=== PATIENT | female | born 2000 | race Caucasian/White ===

== ENCOUNTER 2018-08-29 13:47 | Inpatient (IN) | payer OTHER ==
[2018-08-29] MEDS ORDERED: Ondansetron 4 MG Tab.DIS PO ONE (14:03)
[2018-08-29] MEDS ORDERED: Ondansetron 4 MG/2 ML SDV IVPUSH ONE (14:09)
[2018-08-29] MEDS ORDERED: Sodium Chloride 0.9% 1,000 ML IV ONE ×2 (14:09→22:18)
--- NOTE | 2018-08-29 14:29 | EDM.PDOC ---
ED HPI GENERAL MEDICAL PROBLEM - General Chief Complaint: Headache Stated Complaint: VOMITIN/LEFT ABDOMIN PAIN/HEADACHE Time Seen by Provider: 08/29/18 13:57 Source of Information: Reports: Patient History Limitations: Reports: No Limitations - History of Present Illness INITIAL COMMENTS - FREE TEXT/NARRATIVE: 18 yo F comes in today for headache, LUQ pain, nausea and vomiting x 4 days (2 episodes last night and 2 this morning). She states it was a random onset of symptoms, denies any recent sick contacts, changes in eating habits, or recent travel. She has had similar symptoms in the past, when she had salmonella 2 years ago. She is unable to keep any food or fluids down for about 3 days. She c /o NO 4/10 currently, dizziness/weakness especially with standing, F/C, SOB, Nausea, Vomiting x4 since yesterday, abdominal pain 7/10 with movement. She denies runny nose, sneezing, congestion, sore throat, cough, diarrhea, bloody stool or urine, constipation or any GI/ symptoms. She tried Tylenol at home for her headache with some relief. No h/o migraines. LNMP was 4 days ago. She is sexually active, does not urinate after intercourse. She drinks socially, about 1-2 glasses of wine and "a couple shots" about "every few months". Denies any illicit drug use. She "occasionally vapes" tobacco every few days. She currently does not have a PCP; originally from [place] and has been here 1 year. Treatments CONTRACTING ENGINEER: Reports: Other (see below) Other Treatments CONTRACTING ENGINEER: tylenol q 6hr; 2 tabs Headache Pain Score (Numeric/FACES): 6 Left Upper Abdomen Pain Score (Numeric/FACES): 7 - Related Data Allergies Allergy/AdvReac Type Severity Reaction Status Date / Time No Known Allergies Allergy Verified 08/29/18 14:00 Home Meds: Home Meds ALPRAZolam [Xanax] 0.5 mg PO ASDIRECTED 08/29/18 [History] Sertraline [Zoloft] 150 mg PO DAILY 08/29/18 [History] Past Medical History Psychiatric History: Reports: ADHD, Depression - Infectious Disease History Infectious Disease History: Reports: Other (See Below) Other Infectious Disease History: salamela about 3 yrs ago Social & Family History - Tobacco Use Smoking Status *Q: Never Smoker - Caffeine Use Caffeine Use: Reports: Coffee - Recreational Drug Use Recreational Drug Use: No ED ROS GENERAL - Review of Systems Review Of Systems: See Below Constitutional: Reports: Fever, Chills, Weakness HEENT: Reports: No Symptoms. Denies: Rhinitis, Throat Pain Respiratory: Reports: Shortness of Breath. Denies: Wheezing, Cough Cardiovascular: Reports: No Symptoms. Denies: Chest Pain Endocrine: Reports: Fatigue GI/Abdominal: Reports: Abdominal Pain (LUQ), Nausea, Vomiting (twice last night and twice today). Denies: Bloody Stool, Constipation, Diarrhea, Hematemesis : Reports: No Symptoms. Denies: Dysuria, Hematuria Musculoskeletal: Reports: No Symptoms Skin: Reports: Pallor, Diaphoresis Neurological: Reports: Dizziness (with standing), Headache (/10 currently), Weakness Psychiatric: Reports: No Symptoms Hematologic/Lymphatic: Reports: No Symptoms Immunologic: Reports: No Symptoms ED EXAM, GI/ABD - Physical Exam Exam: See Below Exam Limited By: No Limitations General Appearance: Alert, WD/WN, Mild Distress Eyes: Bilateral: Normal Appearance, EOMI Ears: Normal External Exam, Hearing Grossly Normal Nose: Normal Inspection, Normal Mucosa, No Blood Throat/Mouth: Normal Inspection, Normal Teeth, Normal Gums, Normal Oropharynx, Normal Voice, No Airway Compromise. No: Normal Lips (dry) Neck: Normal Inspection, Supple, Non-Tender, Full Range of Motion Respiratory/Chest: No Respiratory Distress, Lungs Clear, Normal Breath Sounds, No Accessory Muscle Use, Chest Non-Tender Cardiovascular: Normal Peripheral Pulses, No Edema, No Gallop, No JVD, No Murmur , No Rub, Tachycardia GI/Abdominal Exam: Soft, Non-Tender, No Organomegaly, No Distention, No Abnormal Bruit, No Mass, Pelvis Stable, Abnormal Bowel Sounds (hyperactive). No : Guarding, Rigid, Rebound (Female) Exam: Deferred Back Exam: Normal Inspection, Full Range of Motion, NT Neurological: Alert, Oriented, CN II-XII Intact, Normal Cognition, Normal Gait, Normal Reflexes, No Motor/Sensory Deficits Psychiatric: Normal Affect, Normal Mood Skin Exam: Warm, Intact, Diaphoretic, Increased Warmth, Pallor Course - Vital Signs Last Recorded V/S: Last Vital Signs Temp 97.7 F 08/29/18 15:35 Pulse 92 08/29/18 15:35 Resp 22 H 08/29/18 15:35 BP 91/61 08/29/18 15:35 Pulse Ox 99 08/29/18 15:35 Orthostatic Blood Pressure [ 90/56 Standing] Orthostatic Blood Pressure [ 111/73 Sitting] Orthostatic Blood Pressure [ 95/66 Supine] - Orders/Labs/Meds Orders: Active Orders 24 hr Category Date Time Status Admission Status [Patient Status] [ADT] Routine ADT 08/29/18 18:28 Ordered Chest 2V [CR] Stat Exams 08/29/18 15:24 Taken KUB [Abdomen 1V Flat] [CR] Stat Exams 08/29/18 14:23 Taken CULTURE BLOOD [BC] Stat Lab 08/29/18 15:38 Received CULTURE BLOOD [BC] Stat Lab 08/29/18 15:48 Received CULTURE URINE [RM] Stat Lab 08/29/18 16:35 Received Dextrose 5%-Normal Saline @ 100 MLS/HR(1000ml) Med 08/29/18 18:45 Ordered Dextrose 5%-0.9% NaCl [Dextrose 5%-Normal Saline] 1,000 ml IV ASDIRECTED Levofloxacin/Dextrose 5%-Water [Levaquin in D5W 750 MG/ Med 08/30/18 16:00 Ordered 150 ML] 750 mg Premix Bag 1 bag IV Q24H Blood Culture x2 Reflex Set [OM.PC] Stat Oth 08/29/18 15:26 Ordered Resuscitation Status Stat Resus Stat 08/29/18 18:28 Ordered Medication Orders Dextrose/Sodium Chloride (Dextrose 5%-Normal Saline) 1,000 mls @ 100 mls/hr IV ASDIRECTED GIOVANY Levofloxacin/Dextrose 750 mg/ (Premix) 150 mls @ 100 mls/hr IV Q24H [facility] Labs: Laboratory Tests 08/29/18 08/29/18 08/29/18 Range/Units 14:15 14:15 14:15 WBC 30.35 H (3.98-10.04) K/mm3 RBC 4.97 (3.98-5.22) M/mm3 Hgb 13.8 (11.2-15.7) gm/L Hct 40.1 (34.1-44.9) % MCV 80.7 (79.4-94.8) fl MCH 27.8 (25.6-32.2) pg MCHC 34.4 (32.2-35.5) g/dl RDW Std Deviation 36.6 (36.4-46.3) fL Plt Count 241 (182-369) K/mm3 MPV 9.4 (9.4-12.3) fl Neut % (Auto) Cancelled Lymph % (Auto) Cancelled [place] % (Auto) Cancelled Eos % (Auto) Cancelled Baso % (Auto) Cancelled Neut # (Auto) Cancelled Lymph # (Auto) Cancelled [place] # (Auto) Cancelled Eos # (Auto) Cancelled Baso # (Auto) Cancelled Neutrophils % (Manual) 83 H (40-60) % Band Neutrophils % 5 (0-10) % Lymphocytes % (Manual) 5 L (20-40) % Atypical Lymphs % 0 % Monocytes % (Manual) 7 (2-10) % Eosinophils % (Manual) 0 L (0.7-5.8) % Basophils % (Manual) 0 L (0.1-1.2) Manual Slide Review Cancelled Toxic Granulation Few Platelet Estimate Adequate RBC Morph Comment Not Reportable Sodium 134 L (136-145) mEq/L Potassium 3.1 L (3.5-5.1) mEq/L Chloride 97 L (98-107) mEq/L Carbon Dioxide 22 (21-32) mEq/L Anion Gap 18.1 H (5-15) BUN 14 (7-18) mg/dL Creatinine 1.1 H (0.55-1.02) mg/dL Est Cr Clr Drug Dosing 85.26 mL/min Estimated GFR (MDRD) > 60 (>60) mL/min BUN/Creatinine Ratio 12.7 L (14-18) Glucose 136 H (74-106) mg/dL Lactic Acid (0.4-2.0) mmol/L Calcium 9.1 (8.5-10.1) mg/dL Total Bilirubin 1.2 H (0.2-1.0) mg/dL AST 64 H (15-37) U/L ALT 71 H (14-59) U/L Alkaline Phosphatase 58 (46-116) U/L C-Reactive Protein 11.3 H* (<1.0) mg/dL Total Protein 7.8 (6.4-8.2) g/dl Albumin 3.5 (3.4-5.0) g/dl Globulin 4.3 gm/dL Albumin/Globulin Ratio 0.8 L (1-2) Amylase 30 (25-115) U/L Lipase 78 (73-393) U/L HCG, Quant 1.0 mIU/mL Urine Color (Yellow) Urine Appearance (Clear) Urine pH (5.0-8.0) Ur Specific [place] (1.005-1.030) Urine Protein (Negative) Urine Glucose (UA) (Negative) Urine Ketones (Negative) Urine Occult Blood (Negative) Urine Nitrite (Negative) Urine Bilirubin (Negative) Urine Urobilinogen (0.2-1.0) Ur Leukocyte Esterase (Negative) Urine RBC (0-5) /hpf Urine WBC (0-5) /hpf Ur Epithelial Cells Ur Squamous Epith Cells (0-5) /hpf Urine Bacteria (FEW) /hpf Urine Mucus (FEW) /hpf 08/29/18 08/29/18 Range/Units 15:48 16:35 WBC (3.98-10.04) K/mm3 RBC (3.98-5.22) M/mm3 Hgb (11.2-15.7) gm/L Hct (34.1-44.9) % MCV (79.4-94.8) fl MCH (25.6-32.2) pg MCHC (32.2-35.5) g/dl RDW Std Deviation (36.4-46.3) fL Plt Count (182-369) K/mm3 MPV (9.4-12.3) fl Neut % (Auto) Lymph % (Auto) [place] % (Auto) Eos % (Auto) Baso % (Auto) Neut # (Auto) Lymph # (Auto) [place] # (Auto) Eos # (Auto) Baso # (Auto) Neutrophils % (Manual) (40-60) % Band Neutrophils % (0-10) % Lymphocytes % (Manual) (20-40) % Atypical Lymphs % % Monocytes % (Manual) (2-10) % Eosinophils % (Manual) (0.7-5.8) % Basophils % (Manual) (0.1-1.2) Manual Slide Review Toxic Granulation Platelet Estimate RBC Morph Comment Sodium (136-145) mEq/L Potassium (3.5-5.1) mEq/L Chloride (98-107) mEq/L Carbon Dioxide (21-32) mEq/L Anion Gap (5-15) BUN (7-18) mg/dL Creatinine (0.55-1.02) mg/dL Est Cr Clr Drug Dosing mL/min Estimated GFR (MDRD) (>60) mL/min BUN/Creatinine Ratio (14-18) Glucose (74-106) mg/dL Lactic Acid 1.3 (0.4-2.0) mmol/L Calcium (8.5-10.1) mg/dL Total Bilirubin (0.2-1.0) mg/dL AST (15-37) U/L ALT (14-59) U/L Alkaline Phosphatase (46-116) U/L C-Reactive Protein (<1.0) mg/dL Total Protein (6.4-8.2) g/dl Albumin (3.4-5.0) g/dl Globulin gm/dL Albumin/Globulin Ratio (1-2) Amylase (25-115) U/L Lipase (73-393) U/L HCG, Quant mIU/mL Urine Color Yellow (Yellow) Urine Appearance Cloudy H (Clear) Urine pH 6.0 (5.0-8.0) Ur Specific [place] 1.020 (1.005-1.030) Urine Protein 3+ H (Negative) Urine Glucose (UA) Negative (Negative) Urine Ketones 2+ H (Negative) Urine Occult Blood 3+ H (Negative) Urine Nitrite Negative (Negative) Urine Bilirubin Negative (Negative) Urine Urobilinogen 1.0 (0.2-1.0) Ur Leukocyte Esterase 2+ H (Negative) Urine RBC 5-10 H (0-5) /hpf Urine WBC 10-20 H (0-5) /hpf Ur Epithelial Cells Not Reportable Ur Squamous Epith Cells 5-10 H (0-5) /hpf Urine Bacteria Many H (FEW) /hpf Urine Mucus Not seen (FEW) /hpf Meds: Medications Generic Name Dose Route Start Last Admin Trade Name Freq PRN Reason Stop Dose Admin Dextrose/Sodium Chloride 1,000 mls @ 100 mls/hr 08/29/18 18:45 Dextrose 5%-Normal Saline IV ASDIRECTED GIOVANY Levofloxacin/Dextrose 750 mg/ 150 mls @ 100 mls/hr 08/30/18 16:00 Premix IV Q24H GIOVANY Discontinued Medications Generic Name Dose Route Start Last Admin Trade Name Sandhya PRN Reason Stop Dose Admin Ceftriaxone Sodium 2 gm 08/29/18 16:45 08/29/18 18:03 Rocephin IVPUSH Not Given Q24H GIOVANY Sodium Chloride 1,000 mls @ 999 mls/hr 08/29/18 14:09 08/29/18 14:25 Normal Saline IV 08/29/18 15:09 999 mls/hr ONETIME ONE Administration Lactated Ringer's 1,000 mls @ 999 mls/hr 08/29/18 15:17 08/29/18 15:25 Ringers, Lactated IV 08/29/18 16:17 999 mls/hr .BOLUS ONE Administration Potassium Chloride 10 meq/ 100 mls @ 100 mls/hr 08/29/18 15:23 08/29/18 15:35 Premix IV 08/29/18 16:22 100 mls/hr ONETIME ONE Administration Lactated Ringer's 1,000 mls @ 999 mls/hr 08/29/18 16:38 08/29/18 16:55 Ringers, Lactated IV 08/29/18 17:38 999 mls/hr .BOLUS ONE Administration Potassium Chloride 10 meq/ 100 mls @ 100 mls/hr 08/29/18 16:39 08/29/18 16:55 Premix IV 08/29/18 17:38 100 mls/hr ONETIME ONE Administration Levofloxacin/Dextrose 750 mg/ 150 mls @ 100 mls/hr 08/29/18 16:43 08/29/18 17 :24 Premix IV 08/29/18 18:12 100 mls/hr ONETIME ONE Administration Dextrose/Sodium Chloride 1,000 mls @ 999 mls/hr 08/29/18 16:45 08/29/18 17:20 Dextrose 5%-Normal Saline IV 999 mls/hr ASDIRECTED GIOVANY Administration Ketorolac Tromethamine 15 mg 08/29/18 14:34 08/29/18 14:54 Toradol IVPUSH 08/29/18 14:35 15 mg ONETIME ONE Administration Ondansetron HCl 4 mg 08/29/18 14:03 08/29/18 14:35 Zofran Odt PO 08/29/18 14:04 Not Given ONETIME ONE Ondansetron HCl 4 mg 08/29/18 14:09 08/29/18 14:20 Zofran IVPUSH 08/29/18 14:10 4 mg ONETIME ONE Administration Potassium Chloride 40 meq 08/29/18 15:17 08/29/18 16:21 Klor-Con M20 PO 08/29/18 15:18 Not Given ONETIME ONE - Re-Assessments/Exams Free Text/Narrative Re-Assessment/Exam: 08/29/18 14:03 Ordered CBC, CMP, CRP, UA, KUB, Influenza 1L Bolus IV NS, Zofran 4mg IV push given, Toradol 15mg IV push for headache Orthostatic VS 08/29/18 14:30 Orthostatic vitals positive; likely dehydrated 08/29/18 15:05 Influenza negative KUB reviewed by Dr. Lujan and myself. Nothing acute seen. 08/29/18 15:15 Checked in with patient and she is feeling much better. Headache is now 2/10. 08/29/18 15:20 CBC is significant for WBC 30.35 CMP significant for Na 134, K 3.1, Cl 97, AGap 18.1, Cr 1.1, Glu 136, Bili 1.2, AST 64, ALT 71, CRP 11.3 08/29/18 15:28 With her tachycardia, WBC 30.35 w/ 5% bandemia, and suspected source of infection, she meets Sepsis Criteria at this time. Will continue IVF and order blood cultures, lactic acid, CXR to r/o infection. Still awaiting urine cultures. 08/29/18 16:06 CXR reviewed by myself and Dr. Lujan, nothing acute seen. 08/29/18 16:33 LA WNL at 1.3 UA collected, awaiting results Levaquin 750mg IV ordered 08/29/18 17:10 Urine culture ordered UA impressive for UTI- Cloudy, 3+ protein, 2+ ketones, 3+ occult blood, 2+ Leuk esterase, 5-10 RBC, 10-20 WBC, Many bacteria 08/29/18 17:30 Case discussed with hospitalist Dr. Silva. She will come see the patient in the ED. 08/29/18 18:00 Pt has been accepted by hospitalist Dr. Silva for observation. She would like an Amylase and Lipase ordered- they are WNL. Departure - Departure Time of Disposition: 18:27 Disposition: Refer to Observation Condition: Fair Clinical Impression: Pyelonephritis - Discharge Information *PRESCRIPTION DRUG MONITORING PROGRAM REVIEWED*: Not Applicable *COPY OF PRESCRIPTION DRUG MONITORING REPORT IN PATIENT ANTONIA: Not Applicable Referrals: PCP,None [Primary Care Provider] - Forms: ED Department Discharge - My Orders Last 24 Hours: My Active Orders 08/29/18 14:23 KUB [Abdomen 1V Flat] [CR] Stat 08/29/18 15:24 Chest 2V [CR] Stat 08/29/18 15:26 Blood Culture x2 Reflex Set [OM.PC] Stat 08/29/18 15:38 CULTURE BLOOD [BC] Stat 08/29/18 15:48 CULTURE BLOOD [BC] Stat 08/29/18 16:35 CULTURE URINE [RM] Stat 08/29/18 18:28 Admission Status [Patient Status] [ADT] Routine Resuscitation Status Stat 08/29/18 18:45 Dextrose 5%-Normal Saline @ 100 MLS/HR(1000ml) Dextrose 5%-0.9% NaCl [Dextrose 5 %-Normal Saline] 1,000 ml IV ASDIRECTED 08/30/18 16:00 Levofloxacin/Dextrose 5%-Water [Levaquin in D5W 750 MG/150 ML] 750 mg Premix Bag 1 bag IV Q24H - Assessment/Plan Last 24 Hours: My Active Orders 08/29/18 14:23 KUB [Abdomen 1V Flat] [CR] Stat 08/29/18 15:24 Chest 2V [CR] Stat 08/29/18 15:26 Blood Culture x2 Reflex Set [OM.PC] Stat 08/29/18 15:38 CULTURE BLOOD [BC] Stat 08/29/18 15:48 CULTURE BLOOD [BC] Stat 08/29/18 16:35 CULTURE URINE [RM] Stat 08/29/18 18:28 Admission Status [Patient Status] [ADT] Routine Resuscitation Status Stat 08/29/18 18:45 Dextrose 5%-Normal Saline @ 100 MLS/HR(1000ml) Dextrose 5%-0.9% NaCl [Dextrose 5 %-Normal Saline] 1,000 ml IV ASDIRECTED 08/30/18 16:00 Levofloxacin/Dextrose 5%-Water [Levaquin in D5W 750 MG/150 ML] 750 mg Premix Bag 1 bag IV Q24H
[2018-08-29] MEDS ORDERED: Ketorolac 15 MG/ML SDV IVPUSH ONE (14:34)
[2018-08-29] MEDS ORDERED: Potassium Chloride 20 MEQ Tab.ER PO ONE (15:17)
[2018-08-29] MEDS ORDERED: Lactated Ringers 1,000 ML IV ONE ×2 (15:17→16:38)
[2018-08-29] MEDS ORDERED: Potassium Chloride 10 MEQ in Premix Bag 1 BAG IV ONE ×2 (15:23→16:39)
[2018-08-29] MEDS ORDERED: Levofloxacin/Dextrose 5%-Water 750 MG in Premix Bag 1 BAG IV ONE (16:43)
[2018-08-29] MEDS ORDERED: Dextrose 5%-0.9% NaCl 1,000 ML IV SCH ×2 (16:45→18:45)
[2018-08-29] MEDS ORDERED: cefTRIAXone 2 GM Vial IVPUSH SCH (16:45)
--- NOTE | 2018-08-29 19:06 | PCM.HP ---
H&P History of Present Illness - General Date of Service: 08/29/18 Admit Problem/Dx: Admission Diagnosis/Problem Admission Diagnosis/Problem Pyelonephritis Source of Information: Patient, Provider History Limitations: Reports: No Limitations - History of Present Illness Initial Comments - Free Text/Narative: 18 year old female with a complaint of nausea with vomiting for 3-4 days. There has not been a specific association with fatty food. Abdominal pain is located in the left upper quadrant. The patient LNMP was 4 days ago; she denies vaginal discharge. The patient will be admitted to observation. Devin is a full code. Symptom Onset Date: 08/25/18 Duration of Symptoms: Reports: Day(s):, Getting Worse Location: Reports: Abdomen, Generalized Severity: Moderate Improves with: Reports: Medication Worsens with: Reports: None Associated Symptoms: Reports: Loss of Appetite, Malaise, Nausea/Vomiting, Weakness Headache Pain Score (Numeric/FACES): 6 Left Upper Abdomen Pain Score (Numeric/FACES): 7 - Related Data Allergies/Adverse Reactions: Allergies Allergy/AdvReac Type Severity Reaction Status Date / Time No Known Allergies Allergy Verified 08/29/18 14:00 Home Medications: Home Meds ALPRAZolam [Xanax] 0.5 mg PO ASDIRECTED 08/29/18 [History] Sertraline [Zoloft] 150 mg PO DAILY 08/29/18 [History] Past Medical History Psychiatric History: Reports: ADHD, Depression - Infectious Disease History Infectious Disease History: Reports: Other (See Below) Other Infectious Disease History: salamela about 3 yrs ago Social & Family History - Tobacco Use Smoking Status *Q: Never Smoker - Caffeine Use Caffeine Use: Reports: Coffee - Recreational Drug Use Recreational Drug Use: No H&P Review of Systems - Review of Systems: Review Of Systems: See Below General: Reports: Malaise, Weakness HEENT: Reports: Headaches Pulmonary: Reports: No Symptoms Cardiovascular: Reports: No Symptoms Gastrointestinal: Reports: Nausea, Vomiting Genitourinary: Reports: No Symptoms Musculoskeletal: Reports: No Symptoms Skin: Reports: No Symptoms Psychiatric: Reports: No Symptoms Neurological: Reports: No Symptoms Hematologic/Lymphatic: Reports: No Symptoms Immunologic: Reports: No Symptoms Exam - Exam Exam: See Below - Vital Signs Vital Signs: Last Vital Signs Temp 36.3 C 08/29/18 18:55 Pulse 90 08/29/18 18:55 Resp 16 08/29/18 18:55 BP 105/67 08/29/18 18:55 Pulse Ox 100 08/29/18 18:55 Orthostatic Blood Pressure [ 90/56 Standing] Orthostatic Blood Pressure [ 111/73 Sitting] Orthostatic Blood Pressure [ 95/66 Supine] Weight: 68.039 kg - Exam General: Alert, Oriented, Cooperative HEENT: Conjunctiva Clear, Nares Patent, Normal Nasal Septum, Pupils Equal, Pupils Reactive, PERRLA Neck: Trachea Midline Lungs: Clear to Auscultation, Normal Respiratory Effort Cardiovascular: Regular Rate, Regular Rhythm GI/Abdominal Exam: Normal Bowel Sounds, Soft, Non-Tender, No Organomegaly, No Distention (Female) Exam: Deferred Rectal (Female) Exam: Deferred Back Exam: Normal Inspection Extremities: Normal Inspection, Non-Tender, Normal Capillary Refill Skin: Warm Neurological: Cranial Nerves Intact Neuro Extensive - Mental Status: Alert, Oriented x3, Normal Mood/Affect, Normal Cognition, Memory Intact Neuro Extensive - Motor, Sensory, Reflexes: CN II-XII Intact Psychiatric: Alert, Normal Affect, Normal Mood - Patient Data Lab Results Last 24 hrs: Laboratory Results - last 24 hr 08/29/18 08/29/18 08/29/18 Range/Units 14:15 14:15 14:15 WBC 30.35 H (3.98-10.04) K/mm3 RBC 4.97 (3.98-5.22) M/mm3 Hgb 13.8 (11.2-15.7) gm/L Hct 40.1 (34.1-44.9) % MCV 80.7 (79.4-94.8) fl MCH 27.8 (25.6-32.2) pg MCHC 34.4 (32.2-35.5) g/dl RDW Std Deviation 36.6 (36.4-46.3) fL Plt Count 241 (182-369) K/mm3 MPV 9.4 (9.4-12.3) fl Neut % (Auto) Cancelled Lymph % (Auto) Cancelled [place] % (Auto) Cancelled Eos % (Auto) Cancelled Baso % (Auto) Cancelled Neut # (Auto) Cancelled Lymph # (Auto) Cancelled [place] # (Auto) Cancelled Eos # (Auto) Cancelled Baso # (Auto) Cancelled Neutrophils % (Manual) 83 H (40-60) % Band Neutrophils % 5 (0-10) % Lymphocytes % (Manual) 5 L (20-40) % Atypical Lymphs % 0 % Monocytes % (Manual) 7 (2-10) % Eosinophils % (Manual) 0 L (0.7-5.8) % Basophils % (Manual) 0 L (0.1-1.2) Manual Slide Review Cancelled Toxic Granulation Few Platelet Estimate Adequate RBC Morph Comment Not Reportable Sodium 134 L (136-145) mEq/L Potassium 3.1 L (3.5-5.1) mEq/L Chloride 97 L (98-107) mEq/L Carbon Dioxide 22 (21-32) mEq/L Anion Gap 18.1 H (5-15) BUN 14 (7-18) mg/dL Creatinine 1.1 H (0.55-1.02) mg/dL Est Cr Clr Drug Dosing 85.26 mL/min Estimated GFR (MDRD) > 60 (>60) mL/min BUN/Creatinine Ratio 12.7 L (14-18) Glucose 136 H (74-106) mg/dL Lactic Acid (0.4-2.0) mmol/L Calcium 9.1 (8.5-10.1) mg/dL Total Bilirubin 1.2 H (0.2-1.0) mg/dL AST 64 H (15-37) U/L ALT 71 H (14-59) U/L Alkaline Phosphatase 58 (46-116) U/L C-Reactive Protein 11.3 H* (<1.0) mg/dL Total Protein 7.8 (6.4-8.2) g/dl Albumin 3.5 (3.4-5.0) g/dl Globulin 4.3 gm/dL Albumin/Globulin Ratio 0.8 L (1-2) Amylase 30 (25-115) U/L Lipase 78 (73-393) U/L HCG, Quant 1.0 mIU/mL Urine Color (Yellow) Urine Appearance (Clear) Urine pH (5.0-8.0) Ur Specific [place] (1.005-1.030) Urine Protein (Negative) Urine Glucose (UA) (Negative) Urine Ketones (Negative) Urine Occult Blood (Negative) Urine Nitrite (Negative) Urine Bilirubin (Negative) Urine Urobilinogen (0.2-1.0) Ur Leukocyte Esterase (Negative) Urine RBC (0-5) /hpf Urine WBC (0-5) /hpf Ur Epithelial Cells Ur Squamous Epith Cells (0-5) /hpf Urine Bacteria (FEW) /hpf Urine Mucus (FEW) /hpf 08/29/18 08/29/18 Range/Units 15:48 16:35 WBC (3.98-10.04) K/mm3 RBC (3.98-5.22) M/mm3 Hgb (11.2-15.7) gm/L Hct (34.1-44.9) % MCV (79.4-94.8) fl MCH (25.6-32.2) pg MCHC (32.2-35.5) g/dl RDW Std Deviation (36.4-46.3) fL Plt Count (182-369) K/mm3 MPV (9.4-12.3) fl Neut % (Auto) Lymph % (Auto) [place] % (Auto) Eos % (Auto) Baso % (Auto) Neut # (Auto) Lymph # (Auto) [place] # (Auto) Eos # (Auto) Baso # (Auto) Neutrophils % (Manual) (40-60) % Band Neutrophils % (0-10) % Lymphocytes % (Manual) (20-40) % Atypical Lymphs % % Monocytes % (Manual) (2-10) % Eosinophils % (Manual) (0.7-5.8) % Basophils % (Manual) (0.1-1.2) Manual Slide Review Toxic Granulation Platelet Estimate RBC Morph Comment Sodium (136-145) mEq/L Potassium (3.5-5.1) mEq/L Chloride (98-107) mEq/L Carbon Dioxide (21-32) mEq/L Anion Gap (5-15) BUN (7-18) mg/dL Creatinine (0.55-1.02) mg/dL Est Cr Clr Drug Dosing mL/min Estimated GFR (MDRD) (>60) mL/min BUN/Creatinine Ratio (14-18) Glucose (74-106) mg/dL Lactic Acid 1.3 (0.4-2.0) mmol/L Calcium (8.5-10.1) mg/dL Total Bilirubin (0.2-1.0) mg/dL AST (15-37) U/L ALT (14-59) U/L Alkaline Phosphatase (46-116) U/L C-Reactive Protein (<1.0) mg/dL Total Protein (6.4-8.2) g/dl Albumin (3.4-5.0) g/dl Globulin gm/dL Albumin/Globulin Ratio (1-2) Amylase (25-115) U/L Lipase (73-393) U/L HCG, Quant mIU/mL Urine Color Yellow (Yellow) Urine Appearance Cloudy H (Clear) Urine pH 6.0 (5.0-8.0) Ur Specific [place] 1.020 (1.005-1.030) Urine Protein 3+ H (Negative) Urine Glucose (UA) Negative (Negative) Urine Ketones 2+ H (Negative) Urine Occult Blood 3+ H (Negative) Urine Nitrite Negative (Negative) Urine Bilirubin Negative (Negative) Urine Urobilinogen 1.0 (0.2-1.0) Ur Leukocyte Esterase 2+ H (Negative) Urine RBC 5-10 H (0-5) /hpf Urine WBC 10-20 H (0-5) /hpf Ur Epithelial Cells Not Reportable Ur Squamous Epith Cells 5-10 H (0-5) /hpf Urine Bacteria Many H (FEW) /hpf Urine Mucus Not seen (FEW) /hpf Result Diagrams: 08/29/18 14:15 08/29/18 14:15 Jose Results Last 24 hrs: Microbiology 08/29/18 14:10 Influenza Type A Antigen Screen - Final Nasal, Unspecified NEGATIVE INFLUENZA A VIRUS AG Influenza Type B Antigen Screen - Final NEGATIVE INFLUENZA B VIRUS AG - Problem List (1) ADHD SNOMED Code(s): 547909669 ICD Code: F90.9 - ATTENTION-DEFICIT HYPERACTIVITY DISORDER, UNSPECIFIED TYPE Status: Acute Current Visit: Yes (2) Depression SNOMED Code(s): 98201815 ICD Code: F32.9 - MAJOR DEPRESSIVE DISORDER, SINGLE EPISODE, UNSPECIFIED Status: Acute Current Visit: Yes Problem List Initiated/Reviewed/Updated: Yes Orders Last 24hrs: Active Orders 24 hr Category Date Time Status Admission Status [Patient Status] [ADT] Routine ADT 08/29/18 18:28 Active Chest 2V [CR] Stat Exams 08/29/18 15:24 Taken KUB [Abdomen 1V Flat] [CR] Stat Exams 08/29/18 14:23 Taken CULTURE BLOOD [BC] Stat Lab 08/29/18 15:38 Received CULTURE BLOOD [BC] Stat Lab 08/29/18 15:48 Received CULTURE URINE [RM] Stat Lab 08/29/18 16:35 Received DRUG SCREEN, URINE [URCHEM] Stat Lab 08/29/18 16:35 Received Dextrose 5%-0.9% NaCl [Dextrose 5%-Normal Saline] 1,000 Med 08/29/18 18:45 Active ml IV ASDIRECTED Levofloxacin/Dextrose 5%-Water [Levaquin in D5W 750 MG/ Med 08/30/18 16:00 Active 150 ML] 750 mg Premix Bag 1 bag IV Q24H Blood Culture x2 Reflex Set [OM.PC] Stat Oth 08/29/18 15:26 Ordered Resuscitation Status Stat Resus Stat 08/29/18 18:28 Ordered Medication Orders Dextrose/Sodium Chloride (Dextrose 5%-Normal Saline) 1,000 mls @ 100 mls/hr IV ASDIRECTED GIOVANY Levofloxacin/Dextrose 750 mg/ (Premix) 150 mls @ 100 mls/hr IV Q24H GIOVANY Assessment/Plan Comment:: Impression: AUTI Dehydration Chronic ADHD Depression Plan: IVF IV ATB Antispasmodic Home meds Daily labs DVT/GI prophylaxis
[2018-08-29] MEDS ORDERED: Ondansetron 4 MG/2 ML SDV IVPUSH PRN (19:54)
[2018-08-29] MEDS ORDERED: ALPRAZolam 0.5 MG Tab PO PRN (19:55)
[2018-08-29] MEDS ORDERED: Ketorolac 30 MG/ML SDV IVPUSH ONE (22:15)
[2018-08-29] MEDS ORDERED: Scopolamine 1.5 MG Transdermal Patch TRDERM ONE (22:51)
[2018-08-29] MEDS: Promethazine 12.5 MG in Sodium Chloride 0.9% 50 ML IV SCH (23:35)
[2018-08-29] MEDS: Acetaminophen 325 MG Tab PO PRN (23:44)
[2018-08-30] MEDS: Sodium Chloride 0.9% 1,000 ML IV SCH ×4 (00:25→20:05)
[2018-08-30] MEDS ORDERED: Magnesium Sulfate/Water 4 GM in Premix Bag 1 BAG IV ONE ×2 (03:30→18:00)
--- NOTE | 2018-08-30 06:32 | CR ---
Abdomen: Supine view of the abdomen was obtained. Comparison: No prior abdominal x-ray. Bowel gas pattern appears normal. No abnormal calcifications or discrete soft tissue abnormality is appreciated. Bony structures are unremarkable for the patient's age. Impression: 1. No abnormality is appreciated on supine abdominal x-ray. Diagnostic code #1
--- NOTE | 2018-08-30 06:37 | CR ---
Chest: Two views of the chest were obtained. Comparison: No prior chest x-ray. Heart size and mediastinum are normal. Lungs are clear. Bony structures are unremarkable. Impression: 1. Nothing acute is seen on two-view chest x-ray. Diagnostic code #1
[2018-08-30] MEDS: Promethazine 12.5 MG in Sodium Chloride 0.9% 50 ML IV SCH ×4 (06:48→22:33)
[2018-08-30] MEDS: Acetaminophen 325 MG Tab PO PRN ×2 (10:00→23:13)
[2018-08-30] MEDS: Sertraline 50 MG Tab PO SCH (10:01)
[2018-08-30] MEDS: Phenazopyridine 95 MG Tab PO SCH ×3 (10:01→18:03)
[2018-08-30] MEDS: Ibuprofen 600 MG Tab PO PRN (12:36)
[2018-08-30] MEDS: Levofloxacin/Dextrose 5%-Water 750 MG in Premix Bag 1 BAG IV SCH (16:41)
--- NOTE | 2018-08-30 17:55 | PCM.PN ---
- General Info Date of Service: 08/30/18 Subjective Update: Less nausea after aggressive treatment of pyelo/sepsis; will continue clear liquids. Functional Status: Reports: Tolerating Diet (clear), Ambulating, Urinating - Review of Systems General: Reports: Weakness, Malaise, Night Sweats HEENT: Reports: No Symptoms Pulmonary: Reports: No Symptoms Cardiovascular: Reports: No Symptoms Gastrointestinal: Reports: Nausea Genitourinary: Reports: No Symptoms Musculoskeletal: Reports: No Symptoms Skin: Reports: No Symptoms Neurological: Reports: No Symptoms Psychiatric: Reports: No Symptoms - Patient Data Vitals - Most Recent: Last Vital Signs Temp 37.3 C 08/30/18 16:04 Pulse 88 08/30/18 16:04 Resp 15 08/30/18 16:04 BP 103/67 08/30/18 16:04 Pulse Ox 97 08/30/18 16:04 Orthostatic Blood Pressure [ 90/56 Standing] Orthostatic Blood Pressure [ 111/73 Sitting] Orthostatic Blood Pressure [ 95/66 Supine] Weight - Most Recent: 68.946 kg I&O - Last 24 Hours: Intake & Output 08/30/18 08/30/18 08/30/18 06:59 14:59 22:59 Intake Total 5556 117 0072 Output Total 2100 Balance 1945 540 -500 Lab Results Last 24 Hours: Laboratory Results - last 24 hr 08/29/18 08/29/18 08/29/18 Range/Units 14:15 16:35 22:30 WBC (3.98-10.04) K/mm3 RBC (3.98-5.22) M/mm3 Hgb (11.2-15.7) gm/L Hct (34.1-44.9) % MCV (79.4-94.8) fl MCH (25.6-32.2) pg MCHC (32.2-35.5) g/dl RDW Std Deviation (36.4-46.3) fL Plt Count (182-369) K/mm3 MPV (9.4-12.3) fl Neut % (Auto) (34.0-71.1) % Lymph % (Auto) (19.3-51.7) % [place] % (Auto) (4.7-12.5) % Eos % (Auto) (0.7-5.8) Baso % (Auto) (0.1-1.2) % Neut # (Auto) (1.56-6.13) K/mm3 Lymph # (Auto) (1.18-3.74) K/mm3 [place] # (Auto) (0.24-0.36) K/mm3 Eos # (Auto) (0.04-0.36) K/mm3 Baso # (Auto) (0.01-0.08) K/mm3 Manual Slide Review Sodium (136-145) mEq/L Potassium (3.5-5.1) mEq/L Chloride (98-107) mEq/L Carbon Dioxide (21-32) mEq/L Anion Gap (5-15) BUN (7-18) mg/dL Creatinine (0.55-1.02) mg/dL Est Cr Clr Drug Dosing mL/min Estimated GFR (MDRD) (>60) mL/min BUN/Creatinine Ratio (14-18) Glucose (74-106) mg/dL Lactic Acid 3.1 H (0.4-2.0) mmol/L Calcium (8.5-10.1) mg/dL Magnesium (1.8-2.4) mg/dl C-Reactive Protein (<1.0) mg/dL Amylase 30 (25-115) U/L Lipase 78 (73-393) U/L HCG, Quant 1.0 mIU/mL Urine Opiates Screen Negative (KSIVQK=099) Ur Buprenorphine Scrn Negative (CUTOFF=10) Ur Oxycodone Screen Negative (MMO4UL=266) Urine Methadone Screen Negative (OHTFLV=769) Ur Propoxyphene Screen Negative (LDOFLP=785) Ur Barbiturates Screen Negative (PRFJAG=760) Ur Tricyclics Screen Negative (DMXSTB=892) Ur Phencyclidine Scrn Negative (CUTOFF=25) Ur Amphetamine Screen Negative (WZXBGI=810) U Methamphetamines Scrn Negative (GIOVYJ=972) U Benzodiazepines Scrn Negative (JIJPVO=297) U Cocaine Metab Screen Negative (KEWPXH=371) U Marijuana (THC) Screen Presumptive positive H (CUTOFF=50) 08/30/18 08/30/18 08/30/18 Range/Units 02:21 02:21 02:21 WBC 27.84 H (3.98-10.04) K/mm3 RBC 4.01 (3.98-5.22) M/mm3 Hgb 11.3 (11.2-15.7) gm/L Hct 33.2 L (34.1-44.9) % MCV 82.8 (79.4-94.8) fl MCH 28.2 (25.6-32.2) pg MCHC 34.0 (32.2-35.5) g/dl RDW Std Deviation 37.1 (36.4-46.3) fL Plt Count 200 (182-369) K/mm3 MPV 9.3 L (9.4-12.3) fl Neut % (Auto) 87.2 H (34.0-71.1) % Lymph % (Auto) 3.7 L (19.3-51.7) % [place] % (Auto) 6.3 (4.7-12.5) % Eos % (Auto) 0 L (0.7-5.8) Baso % (Auto) 0.1 (0.1-1.2) % Neut # (Auto) 24.29 H (1.56-6.13) K/mm3 Lymph # (Auto) 1.04 L (1.18-3.74) K/mm3 [place] # (Auto) 1.74 H (0.24-0.36) K/mm3 Eos # (Auto) 0.00 L (0.04-0.36) K/mm3 Baso # (Auto) 0.02 (0.01-0.08) K/mm3 Manual Slide Review Abnormal smear Sodium 138 (136-145) mEq/L Potassium 3.6 (3.5-5.1) mEq/L Chloride 106 (98-107) mEq/L Carbon Dioxide 24 (21-32) mEq/L Anion Gap 11.6 (5-15) BUN 10 (7-18) mg/dL Creatinine 1.1 H (0.55-1.02) mg/dL Est Cr Clr Drug Dosing 85.26 mL/min Estimated GFR (MDRD) > 60 (>60) mL/min BUN/Creatinine Ratio 9.1 L (14-18) Glucose 160 H (74-106) mg/dL Lactic Acid 1.7 (0.4-2.0) mmol/L Calcium 8.0 L (8.5-10.1) mg/dL Magnesium 1.1 L (1.8-2.4) mg/dl C-Reactive Protein 28.3 H* (<1.0) mg/dL Amylase (25-115) U/L Lipase (73-393) U/L HCG, Quant mIU/mL Urine Opiates Screen (YSXKIA=736) Ur Buprenorphine Scrn (CUTOFF=10) Ur Oxycodone Screen (ULH1JJ=953) Urine Methadone Screen (IKQXTK=969) Ur Propoxyphene Screen (TZIYZZ=386) Ur Barbiturates Screen (LWIMIY=132) Ur Tricyclics Screen (DXZALP=857) Ur Phencyclidine Scrn (CUTOFF=25) Ur Amphetamine Screen (BIVLIH=689) U Methamphetamines Scrn (RIFSUW=986) U Benzodiazepines Scrn (DWEBWO=281) U Cocaine Metab Screen (FGQAFF=207) U Marijuana (THC) Screen (CUTOFF=50) Jose Results Last 24 Hours: Microbiology 08/29/18 15:48 Aerobic Blood Culture - Preliminary Blood - Venous - Lab Draw NO GROWTH AFTER 1 DAY Anaerobic Blood Culture - Preliminary NO GROWTH AFTER 1 DAY 08/29/18 15:38 Aerobic Blood Culture - Preliminary Blood - Venous NO GROWTH AFTER 1 DAY Anaerobic Blood Culture - Preliminary NO GROWTH AFTER 1 DAY 08/29/18 16:35 Urine Culture - Preliminary Urine, Clean Catch Gram Negative Rods 08/29/18 14:10 Influenza Type A Antigen Screen - Final Nasal, Unspecified NEGATIVE INFLUENZA A VIRUS AG Influenza Type B Antigen Screen - Final NEGATIVE INFLUENZA B VIRUS AG Med Orders - Current: Current Medications Acetaminophen (Tylenol) 650 mg PO Q6H PRN PRN Reason: Pain/Fever Last Admin: 08/30/18 10:00 Dose: 650 mg Alprazolam (Xanax) 0.5 mg PO BID PRN PRN Reason: Anxiety Levofloxacin/Dextrose 750 mg/ (Premix) 150 mls @ 100 mls/hr IV Q24H [facility] Last Admin: 08/30/18 16:41 Dose: 100 mls/hr Promethazine HCl 12.5 mg/ (Sodium Chloride) 50.5 mls @ 100 mls/hr IV Q6H [facility] Last Admin: 08/30/18 16:40 Dose: 100 mls/hr Sodium Chloride (Normal Saline) 1,000 mls @ 150 mls/hr IV ASDIRECTED [facility] Last Admin: 08/30/18 13:29 Dose: 150 mls/hr Magnesium Sulfate 4 gm/ Premix 50 mls @ 12.5 mls/hr IV ONETIME ONE Stop: 08/30/18 21:59 Ibuprofen (Motrin) 600 mg PO Q6H PRN PRN Reason: Headache Last Admin: 08/30/18 12:36 Dose: 600 mg Miscellaneous Information (Remove Patch) 1 ea TRDERM Q72H [facility] Ondansetron HCl (Zofran) 4 mg IVPUSH Q8H PRN PRN Reason: Nausea/Vomiting Phenazopyridine HCl (Urinary Pain Relief) 95 mg PO TIDPC [facility] Last Admin: 08/30/18 12:00 Dose: 95 mg Sertraline HCl (Zoloft) 150 mg PO DAILY [facility] Last Admin: 08/30/18 10:01 Dose: 150 mg Discontinued Medications Ceftriaxone Sodium (Rocephin) 2 gm IVPUSH Q24H [facility] Last Admin: 08/29/18 18:03 Dose: Not Given Sodium Chloride (Normal Saline) 1,000 mls @ 999 mls/hr IV ONETIME ONE Stop: 08/29/18 15:09 Last Admin: 08/29/18 14:25 Dose: 999 mls/hr Lactated Ringer's (Ringers, Lactated) 1,000 mls @ 999 mls/hr IV .BOLUS ONE Stop: 08/29/18 16:17 Last Admin: 08/29/18 15:25 Dose: 999 mls/hr Potassium Chloride 10 meq/ (Premix) 100 mls @ 100 mls/hr IV ONETIME ONE Stop: 08/29/18 16:22 Last Admin: 08/29/18 15:35 Dose: 100 mls/hr Lactated Ringer's (Ringers, Lactated) 1,000 mls @ 999 mls/hr IV .BOLUS ONE Stop: 08/29/18 17:38 Last Admin: 08/29/18 16:55 Dose: 999 mls/hr Potassium Chloride 10 meq/ (Premix) 100 mls @ 100 mls/hr IV ONETIME ONE Stop: 08/29/18 17:38 Last Admin: 08/29/18 16:55 Dose: 100 mls/hr Levofloxacin/Dextrose 750 mg/ (Premix) 150 mls @ 100 mls/hr IV ONETIME ONE Stop: 08/29/18 18:12 Last Admin: 08/29/18 17:24 Dose: 100 mls/hr Dextrose/Sodium Chloride (Dextrose 5%-Normal Saline) 1,000 mls @ 999 mls/hr IV ASDIRECTED [facility] Last Admin: 08/29/18 17:20 Dose: 999 mls/hr Dextrose/Sodium Chloride (Dextrose 5%-Normal Saline) 1,000 mls @ 100 mls/hr IV ASDIRECTED [facility] Last Admin: 08/29/18 21:52 Dose: 100 mls/hr Sodium Chloride (Normal Saline) 1,000 mls @ 500 mls/hr IV ONETIME ONE Stop: 08/30/18 00:17 Last Admin: 08/29/18 22:24 Dose: 500 mls/hr Magnesium Sulfate 4 gm/ Premix 50 mls @ 12.5 mls/hr IV ONETIME ONE Stop: 08/30/18 07:29 Last Admin: 08/30/18 03:33 Dose: 12.5 mls/hr Influenza Virus Vaccine (Pharmacy To Dose - Influenza Vaccine) 1 each IM ONETIME ONE Stop: 08/29/18 23:08 Influenza Virus Vaccine (Fluzone Quad 1741-7271 Syringe) 60 mcg IM .ONCE ONE Stop: 08/30/18 10:01 Ketorolac Tromethamine (Toradol) 15 mg IVPUSH ONETIME ONE Stop: 08/29/18 14:35 Last Admin: 08/29/18 14:54 Dose: 15 mg Ketorolac Tromethamine (Toradol) 30 mg IVPUSH ONETIME ONE Stop: 08/29/18 22:16 Last Admin: 08/29/18 22:25 Dose: 30 mg Ondansetron HCl (Zofran Odt) 4 mg PO ONETIME ONE Stop: 08/29/18 14:04 Last Admin: 08/29/18 14:35 Dose: Not Given Ondansetron HCl (Zofran) 4 mg IVPUSH ONETIME ONE Stop: 08/29/18 14:10 Last Admin: 08/29/18 14:20 Dose: 4 mg Potassium Chloride (Klor-Con M20) 40 meq PO ONETIME ONE Stop: 08/29/18 15:18 Last Admin: 08/29/18 16:21 Dose: Not Given Scopolamine (Transderm-Scop) 1.5 mg TRDERM ONETIME ONE Stop: 08/29/18 22:52 Last Admin: 08/29/18 23:34 Dose: 1.5 mg - Exam Quality Assessment: DVT Prophylaxis General: Alert, Oriented, Cooperative, No Acute Distress HEENT: Pupils Equal, Pupils Reactive, EOMI Neck: Trachea Midline, No JVD Lungs: Normal Respiratory Effort Cardiovascular: Regular Rate, Regular Rhythm GI/Abdominal Exam: Normal Bowel Sounds, Soft, Non-Tender, No Organomegaly, No Distention (Female) Exam: Deferred Back Exam: Normal Inspection Extremities: Normal Inspection, Non-Tender, Normal Capillary Refill Skin: Warm Neurological: No New Focal Deficit Psy/Mental Status: Alert, Normal Affect, Normal Mood - Problem List & Annotations (1) ADHD SNOMED Code(s): 087679953 Code(s): F90.9 - ATTENTION-DEFICIT HYPERACTIVITY DISORDER, UNSPECIFIED TYPE Status: Acute Current Visit: Yes (2) Depression SNOMED Code(s): 95753852 Code(s): F32.9 - MAJOR DEPRESSIVE DISORDER, SINGLE EPISODE, UNSPECIFIED Status: Acute Current Visit: Yes - Problem List Review Problem List Initiated/Reviewed/Updated: Yes - My Orders Last 24 Hours: My Active Orders 08/29/18 19:54 Ondansetron [Zofran] 4 mg IVPUSH Q8H PRN 08/29/18 19:55 ALPRAZolam [Xanax] 0.5 mg PO BID PRN 08/29/18 20:02 Acetaminophen [Tylenol] 650 mg PO Q6H PRN 08/29/18 22:14 Blood Culture x2 Reflex Set [OM.PC] Stat 08/29/18 22:17 Patient Status [ADT] Routine 08/29/18 22:30 Sodium Chloride 0.9% [Normal Saline] 1,000 ml IV ASDIRECTED 08/29/18 22:34 CULTURE BLOOD [BC] Stat 08/29/18 22:40 CULTURE BLOOD [BC] Stat 08/29/18 23:00 Promethazine [Phenergan] 12.5 mg Sodium Chloride 0.9% [Normal Saline] 50 ml IV Q6H 08/29/18 23:07 Influenza Vaccine Charge [RC] .DISCHARGE 08/30/18 03:05 Up ad [place] [RC] ASDIRECTED 08/30/18 09:00 Phenazopyridine [Urinary Pain Relief] 95 mg PO TIDPC Sertraline [Zoloft] 150 mg PO DAILY 08/30/18 12:13 Ibuprofen [Motrin] 600 mg PO Q6H PRN 08/30/18 18:00 Magnesium Sulfate/Water [Magnesium Sulfate 4 GM in Water 50 ML] 4 gm Premix Bag 1 bag IV ONETIME 08/30/18 Breakfast Clear Liquid Diet [DIET] 08/31/18 05:00 BMP [BASIC METABOLIC PANEL,BMP] [CHEM] DAILY CBC WITH AUTO DIFF [HEME] DAILY CRP [C-REACTIVE PROTEIN] [CHEM] DAILY LACTIC ACID [CHEM] DAILY MAGNESIUM [CHEM] DAILY 08/31/18 21:00 Remove Patch 1 ea TRDERM Q72H 09/01/18 05:00 BMP [BASIC METABOLIC PANEL,BMP] [CHEM] DAILY CBC WITH AUTO DIFF [HEME] DAILY CRP [C-REACTIVE PROTEIN] [CHEM] DAILY LACTIC ACID [CHEM] DAILY MAGNESIUM [CHEM] DAILY 09/02/18 05:00 BMP [BASIC METABOLIC PANEL,BMP] [CHEM] DAILY CBC WITH AUTO DIFF [HEME] DAILY CRP [C-REACTIVE PROTEIN] [CHEM] DAILY LACTIC ACID [CHEM] DAILY MAGNESIUM [CHEM] DAILY - Plan Plan:: Impression: Pyelonephritis Dehydration Urosepsis Chronic ADHD Depression Plan: IVF IV ATB, Levoquin Antispasmodic Home meds Daily labs DVT/GI prophylaxis
[2018-08-31] MEDS: Promethazine 12.5 MG in Sodium Chloride 0.9% 50 ML IV SCH ×2 (04:35→11:16)
[2018-08-31] MEDS: Sodium Chloride 0.9% 1,000 ML IV SCH ×2 (04:35→11:24)
[2018-08-31] MEDS: Acetaminophen 325 MG Tab PO PRN ×2 (08:34→14:46)
[2018-08-31] MEDS: Sertraline 50 MG Tab PO SCH (08:34)
[2018-08-31] MEDS: Phenazopyridine 95 MG Tab PO SCH ×3 (08:35→19:42)
[2018-08-31] MEDS ORDERED: Promethazine 12.5 MG in Sodium Chloride 0.9% 50 ML IV PRN (11:13)
[2018-08-31] MEDS: Ibuprofen 600 MG Tab PO PRN ×2 (11:26→21:37)
[2018-08-31] MEDS: Levofloxacin/Dextrose 5%-Water 750 MG in Premix Bag 1 BAG IV SCH (16:33)
--- NOTE | 2018-08-31 17:25 | PCM.PN ---
- General Info Date of Service: 08/31/18 Functional Status: Reports: Pain Controlled, Tolerating Diet, Ambulating, Urinating - Review of Systems General: Reports: Weakness HEENT: Reports: No Symptoms Pulmonary: Reports: No Symptoms Cardiovascular: Reports: No Symptoms Gastrointestinal: Reports: No Symptoms Genitourinary: Reports: No Symptoms Musculoskeletal: Reports: No Symptoms Skin: Reports: No Symptoms Neurological: Reports: No Symptoms Psychiatric: Reports: No Symptoms - Patient Data Vitals - Most Recent: Last Vital Signs Temp 36.9 C 08/31/18 12:27 Pulse 56 L 08/31/18 16:35 Resp 24 H 08/31/18 16:35 BP 109/74 08/31/18 16:35 Pulse Ox 99 08/31/18 16:35 Orthostatic Blood Pressure [ 90/56 Standing] Orthostatic Blood Pressure [ 111/73 Sitting] Orthostatic Blood Pressure [ 95/66 Supine] Weight - Most Recent: 71.214 kg I&O - Last 24 Hours: Intake & Output 08/31/18 08/31/18 08/31/18 06:59 14:59 22:59 Intake Total 2750 640 2200 Balance 2750 640 2200 Lab Results Last 24 Hours: Laboratory Results - last 24 hr 08/31/18 08/31/18 08/31/18 Range/Units 04:30 04:30 04:30 WBC 19.60 H (3.98-10.04) K/mm3 RBC 3.54 L (3.98-5.22) M/mm3 Hgb 9.9 L (11.2-15.7) gm/L Hct 29.4 L (34.1-44.9) % MCV 83.1 (79.4-94.8) fl MCH 28.0 (25.6-32.2) pg MCHC 33.7 (32.2-35.5) g/dl RDW Std Deviation 37.5 (36.4-46.3) fL Plt Count 158 L (182-369) K/mm3 MPV 9.7 (9.4-12.3) fl Neut % (Auto) 82.2 H (34.0-71.1) % Lymph % (Auto) 7.9 L (19.3-51.7) % [place] % (Auto) 8.5 (4.7-12.5) % Eos % (Auto) 0 L (0.7-5.8) Baso % (Auto) 0.1 (0.1-1.2) % Neut # (Auto) 16.13 H (1.56-6.13) K/mm3 Lymph # (Auto) 1.55 (1.18-3.74) K/mm3 [place] # (Auto) 1.66 H (0.24-0.36) K/mm3 Eos # (Auto) 0.00 L (0.04-0.36) K/mm3 Baso # (Auto) 0.01 (0.01-0.08) K/mm3 Manual Slide Review Abnormal smear Sodium 138 (136-145) mEq/L Potassium 3.6 (3.5-5.1) mEq/L Chloride 108 H (98-107) mEq/L Carbon Dioxide 21 (21-32) mEq/L Anion Gap 12.6 (5-15) BUN 7 (7-18) mg/dL Creatinine 0.7 (0.55-1.02) mg/dL Est Cr Clr Drug Dosing 133.98 mL/min Estimated GFR (MDRD) > 60 (>60) mL/min BUN/Creatinine Ratio 10.0 L (14-18) Glucose 111 H (74-106) mg/dL Lactic Acid 0.8 (0.4-2.0) mmol/L Calcium 7.8 L (8.5-10.1) mg/dL Magnesium 2.2 (1.8-2.4) mg/dl C-Reactive Protein 22.3 H* (<1.0) mg/dL Monoscreen (NEGATIVE) 08/31/18 Range/Units 04:30 WBC (3.98-10.04) K/mm3 RBC (3.98-5.22) M/mm3 Hgb (11.2-15.7) gm/L Hct (34.1-44.9) % MCV (79.4-94.8) fl MCH (25.6-32.2) pg MCHC (32.2-35.5) g/dl RDW Std Deviation (36.4-46.3) fL Plt Count (182-369) K/mm3 MPV (9.4-12.3) fl Neut % (Auto) (34.0-71.1) % Lymph % (Auto) (19.3-51.7) % [place] % (Auto) (4.7-12.5) % Eos % (Auto) (0.7-5.8) Baso % (Auto) (0.1-1.2) % Neut # (Auto) (1.56-6.13) K/mm3 Lymph # (Auto) (1.18-3.74) K/mm3 [place] # (Auto) (0.24-0.36) K/mm3 Eos # (Auto) (0.04-0.36) K/mm3 Baso # (Auto) (0.01-0.08) K/mm3 Manual Slide Review Sodium (136-145) mEq/L Potassium (3.5-5.1) mEq/L Chloride (98-107) mEq/L Carbon Dioxide (21-32) mEq/L Anion Gap (5-15) BUN (7-18) mg/dL Creatinine (0.55-1.02) mg/dL Est Cr Clr Drug Dosing mL/min Estimated GFR (MDRD) (>60) mL/min BUN/Creatinine Ratio (14-18) Glucose (74-106) mg/dL Lactic Acid (0.4-2.0) mmol/L Calcium (8.5-10.1) mg/dL Magnesium (1.8-2.4) mg/dl C-Reactive Protein (<1.0) mg/dL Monoscreen Negative (NEGATIVE) Jose Results Last 24 Hours: Microbiology 08/29/18 15:48 Aerobic Blood Culture - Preliminary Blood - Venous - Lab Draw NO GROWTH AFTER 2 DAYS Anaerobic Blood Culture - Preliminary NO GROWTH AFTER 2 DAYS 08/29/18 15:38 Aerobic Blood Culture - Preliminary Blood - Venous NO GROWTH AFTER 2 DAYS Anaerobic Blood Culture - Preliminary NO GROWTH AFTER 2 DAYS 08/29/18 16:35 Urine Culture - Final Urine, Clean Catch Escherichia Coli 08/29/18 22:40 Aerobic Blood Culture - Preliminary Blood - Venous - Lab Draw NO GROWTH AFTER 1 DAY Anaerobic Blood Culture - Preliminary NO GROWTH AFTER 1 DAY 08/29/18 22:34 Aerobic Blood Culture - Preliminary Blood - Venous NO GROWTH AFTER 1 DAY Anaerobic Blood Culture - Preliminary NO GROWTH AFTER 1 DAY Med Orders - Current: Current Medications Acetaminophen (Tylenol) 650 mg PO Q6H PRN PRN Reason: Pain/Fever Last Admin: 04/02/19 14:46 Dose: 650 mg Alprazolam (Xanax) 0.5 mg PO BID PRN PRN Reason: Anxiety Levofloxacin/Dextrose 750 mg/ (Premix) 150 mls @ 100 mls/hr IV Q24H [facility] Last Admin: 08/31/18 16:33 Dose: 100 mls/hr Promethazine HCl 12.5 mg/ (Sodium Chloride) 50.5 mls @ 100 mls/hr IV Q6H PRN PRN Reason: Nausea Ibuprofen (Motrin) 600 mg PO Q6H PRN PRN Reason: Headache Last Admin: 08/31/18 11:26 Dose: 600 mg Miscellaneous Information (Remove Patch) 1 ea TRDERM Q72H [facility] Ondansetron HCl (Zofran) 4 mg IVPUSH Q8H PRN PRN Reason: Nausea/Vomiting Phenazopyridine HCl (Urinary Pain Relief) 95 mg PO TIDPC [facility] Last Admin: 08/31/18 13:36 Dose: 95 mg Sertraline HCl (Zoloft) 150 mg PO DAILY [facility] Last Admin: 08/31/18 08:34 Dose: 150 mg Discontinued Medications Ceftriaxone Sodium (Rocephin) 2 gm IVPUSH Q24H [facility] Last Admin: 08/29/18 18:03 Dose: Not Given Sodium Chloride (Normal Saline) 1,000 mls @ 999 mls/hr IV ONETIME ONE Stop: 08/29/18 15:09 Last Admin: 08/29/18 14:25 Dose: 999 mls/hr Lactated Ringer's (Ringers, Lactated) 1,000 mls @ 999 mls/hr IV .BOLUS ONE Stop: 08/29/18 16:17 Last Admin: 08/29/18 15:25 Dose: 999 mls/hr Potassium Chloride 10 meq/ (Premix) 100 mls @ 100 mls/hr IV ONETIME ONE Stop: 08/29/18 16:22 Last Admin: 08/29/18 15:35 Dose: 100 mls/hr Lactated Ringer's (Ringers, Lactated) 1,000 mls @ 999 mls/hr IV .BOLUS ONE Stop: 08/29/18 17:38 Last Admin: 08/29/18 16:55 Dose: 999 mls/hr Potassium Chloride 10 meq/ (Premix) 100 mls @ 100 mls/hr IV ONETIME ONE Stop: 08/29/18 17:38 Last Admin: 08/29/18 16:55 Dose: 100 mls/hr Levofloxacin/Dextrose 750 mg/ (Premix) 150 mls @ 100 mls/hr IV ONETIME ONE Stop: 08/29/18 18:12 Last Admin: 08/29/18 17:24 Dose: 100 mls/hr Dextrose/Sodium Chloride (Dextrose 5%-Normal Saline) 1,000 mls @ 999 mls/hr IV ASDIRECTED [facility] Last Admin: 08/29/18 17:20 Dose: 999 mls/hr Dextrose/Sodium Chloride (Dextrose 5%-Normal Saline) 1,000 mls @ 100 mls/hr IV ASDIRECTED [facility] Last Admin: 08/29/18 21:52 Dose: 100 mls/hr Promethazine HCl 12.5 mg/ (Sodium Chloride) 50.5 mls @ 100 mls/hr IV Q6H [facility] Last Admin: 08/31/18 11:16 Dose: Not Given Sodium Chloride (Normal Saline) 1,000 mls @ 150 mls/hr IV ASDIRECTED [facility] Last Admin: 08/31/18 11:24 Dose: 150 mls/hr Sodium Chloride (Normal Saline) 1,000 mls @ 500 mls/hr IV ONETIME ONE Stop: 08/30/18 00:17 Last Admin: 08/29/18 22:24 Dose: 500 mls/hr Magnesium Sulfate 4 gm/ Premix 50 mls @ 12.5 mls/hr IV ONETIME ONE Stop: 08/30/18 07:29 Last Admin: 08/30/18 03:33 Dose: 12.5 mls/hr Magnesium Sulfate 4 gm/ Premix 50 mls @ 12.5 mls/hr IV ONETIME ONE Stop: 08/30/18 21:59 Last Admin: 08/30/18 18:02 Dose: 12.5 mls/hr Influenza Virus Vaccine (Pharmacy To Dose - Influenza Vaccine) 1 each IM ONETIME ONE Stop: 08/29/18 23:08 Influenza Virus Vaccine (Fluzone Quad [id number] Syringe) 60 mcg IM .ONCE ONE Stop: 08/30/18 10:01 Ketorolac Tromethamine (Toradol) 15 mg IVPUSH ONETIME ONE Stop: 08/29/18 14:35 Last Admin: 08/29/18 14:54 Dose: 15 mg Ketorolac Tromethamine (Toradol) 30 mg IVPUSH ONETIME ONE Stop: 08/29/18 22:16 Last Admin: 08/29/18 22:25 Dose: 30 mg Ondansetron HCl (Zofran Odt) 4 mg PO ONETIME ONE Stop: 08/29/18 14:04 Last Admin: 08/29/18 14:35 Dose: Not Given Ondansetron HCl (Zofran) 4 mg IVPUSH ONETIME ONE Stop: 08/29/18 14:10 Last Admin: 08/29/18 14:20 Dose: 4 mg Potassium Chloride (Klor-Con M20) 40 meq PO ONETIME ONE Stop: 08/29/18 15:18 Last Admin: 08/29/18 16:21 Dose: Not Given Scopolamine (Transderm-Scop) 1.5 mg TRDERM ONETIME ONE Stop: 08/29/18 22:52 Last Admin: 08/29/18 23:34 Dose: 1.5 mg - Exam Quality Assessment: DVT Prophylaxis General: Alert, Oriented, Cooperative, No Acute Distress HEENT: Pupils Equal, Pupils Reactive, EOMI Neck: Trachea Midline, No JVD Lungs: Normal Respiratory Effort Cardiovascular: Regular Rate, Regular Rhythm GI/Abdominal Exam: Normal Bowel Sounds, Soft, Non-Tender, No Organomegaly, No Distention (Female) Exam: Deferred Back Exam: Normal Inspection Extremities: Normal Inspection, Non-Tender, Normal Capillary Refill Skin: Warm Neurological: No New Focal Deficit, Normal Gait, Normal Speech Psy/Mental Status: Alert, Normal Affect, Normal Mood - Problem List & Annotations (1) ADHD SNOMED Code(s): 965015252 Code(s): F90.9 - ATTENTION-DEFICIT HYPERACTIVITY DISORDER, UNSPECIFIED TYPE Status: Acute Current Visit: Yes (2) Depression SNOMED Code(s): 21715092 Code(s): F32.9 - MAJOR DEPRESSIVE DISORDER, SINGLE EPISODE, UNSPECIFIED Status: Acute Current Visit: Yes - Problem List Review Problem List Initiated/Reviewed/Updated: Yes - My Orders Last 24 Hours: My Active Orders 08/31/18 11:00 RT Incentive Spirometry [RC] Q1HWA OT Evaluation and Treatment [CONS] Routine PT Evaluation and Treatment [CONS] Routine 08/31/18 21:00 Remove Patch 1 ea TRDERM Q72H 08/31/18 Dinner Soft Diet [DIET] 09/01/18 05:00 BMP [BASIC METABOLIC PANEL,BMP] [CHEM] DAILY CBC WITH AUTO DIFF [HEME] DAILY CRP [C-REACTIVE PROTEIN] [CHEM] DAILY LACTIC ACID [CHEM] DAILY MAGNESIUM [CHEM] DAILY 09/02/18 05:00 BMP [BASIC METABOLIC PANEL,BMP] [CHEM] DAILY CBC WITH AUTO DIFF [HEME] DAILY CRP [C-REACTIVE PROTEIN] [CHEM] DAILY LACTIC ACID [CHEM] DAILY MAGNESIUM [CHEM] DAILY - Plan Plan:: Impression: Pyelonephritis Dehydration Urosepsis Chronic ADHD Depression Plan: IVF IV ATB, Levoquin Antispasmodic Home meds Daily labs DVT/GI prophylaxis Gyne OP DC 24 hours
[2018-09-01] MEDS: Sertraline 50 MG Tab PO SCH (08:08)
[2018-09-01] MEDS: Ketorolac 15 MG/ML SDV IVPUSH SCH ×3 (08:08→23:06)
[2018-09-01] MEDS: Phenazopyridine 95 MG Tab PO SCH (08:08)
--- NOTE | 2018-09-01 09:26 | PCM.PN ---
- General Info Date of Service: 09/01/18 Admission Dx/Problem (Free Text): Admission Diagnosis/Problem Admission Diagnosis/Problem Pyelonephritis Subjective Update: Less nausea after aggressive treatment of pyelo/sepsis; will continue clear liquids. Functional Status: Reports: Pain Controlled, Tolerating Diet, Ambulating, Urinating. Denies: New Symptoms - Review of Systems General: Reports: Fever, Weakness. Denies: Chills HEENT: Reports: No Symptoms Pulmonary: Denies: Shortness of Breath Cardiovascular: Denies: Chest Pain, Dyspnea on Exertion, Lightheadedness Gastrointestinal: Reports: Decreased Appetite. Denies: Abdominal Pain, Nausea, Vomiting Genitourinary: Reports: No Symptoms Musculoskeletal: Reports: No Symptoms Neurological: Reports: Dizziness, Weakness. Denies: Confusion, Pre-Existing Deficit, Gait Disturbance Psychiatric: Denies: No Symptoms, Confusion, Depression, Anxiety, Agitation Systems Review Comment:: She had a fever but resolved overnight. She still feels weak and dizzy intermittently since admission. She only eats one meal a day. Her WBC continues to improve. - Patient Data Vitals - Most Recent: Last Vital Signs Temp 37.8 C 09/01/18 07:42 Pulse 68 09/01/18 07:41 Resp 14 09/01/18 07:41 BP 128/86 09/01/18 07:41 Pulse Ox 98 09/01/18 07:41 Orthostatic Blood Pressure [ 90/56 Standing] Orthostatic Blood Pressure [ 111/73 Sitting] Orthostatic Blood Pressure [ 95/66 Supine] Weight - Most Recent: 70.08 kg I&O - Last 24 Hours: Intake & Output 08/31/18 09/01/18 09/01/18 22:59 06:59 14:59 Intake Total 2200 600 Output Total 800 Balance 2200 -200 Lab Results Last 24 Hours: Laboratory Results - last 24 hr 08/31/18 09/01/18 09/01/18 Range/Units 04:30 06:17 06:17 WBC 15.79 H (3.98-10.04) K/mm3 RBC 3.54 L (3.98-5.22) M/mm3 Hgb 9.7 L (11.2-15.7) gm/L Hct 29.2 L (34.1-44.9) % MCV 82.5 (79.4-94.8) fl MCH 27.4 (25.6-32.2) pg MCHC 33.2 (32.2-35.5) g/dl RDW Std Deviation 38.0 (36.4-46.3) fL Plt Count 198 (182-369) K/mm3 MPV 9.9 (9.4-12.3) fl Neut % (Auto) 82.7 H (34.0-71.1) % Lymph % (Auto) 8.3 L (19.3-51.7) % [place] % (Auto) 8.4 (4.7-12.5) % Eos % (Auto) 0.2 L (0.7-5.8) Baso % (Auto) 0.1 (0.1-1.2) % Neut # (Auto) 13.06 H (1.56-6.13) K/mm3 Lymph # (Auto) 1.31 (1.18-3.74) K/mm3 [place] # (Auto) 1.33 H (0.24-0.36) K/mm3 Eos # (Auto) 0.03 L (0.04-0.36) K/mm3 Baso # (Auto) 0.01 (0.01-0.08) K/mm3 Manual Slide Review Abnormal smear Sodium 136 (136-145) mEq/L Potassium 3.3 L (3.5-5.1) mEq/L Chloride 103 (98-107) mEq/L Carbon Dioxide 21 (21-32) mEq/L Anion Gap 15.3 H (5-15) BUN 9 (7-18) mg/dL Creatinine 0.7 (0.55-1.02) mg/dL Est Cr Clr Drug Dosing 133.98 mL/min Estimated GFR (MDRD) > 60 (>60) mL/min BUN/Creatinine Ratio 12.9 L (14-18) Glucose 85 (74-106) mg/dL Lactic Acid (0.4-2.0) mmol/L Calcium 8.0 L (8.5-10.1) mg/dL Magnesium 1.6 L (1.8-2.4) mg/dl C-Reactive Protein 25.8 H* (<1.0) mg/dL Monoscreen Negative (NEGATIVE) 09/01/18 Range/Units 06:17 WBC (3.98-10.04) K/mm3 RBC (3.98-5.22) M/mm3 Hgb (11.2-15.7) gm/L Hct (34.1-44.9) % MCV (79.4-94.8) fl MCH (25.6-32.2) pg MCHC (32.2-35.5) g/dl RDW Std Deviation (36.4-46.3) fL Plt Count (182-369) K/mm3 MPV (9.4-12.3) fl Neut % (Auto) (34.0-71.1) % Lymph % (Auto) (19.3-51.7) % [place] % (Auto) (4.7-12.5) % Eos % (Auto) (0.7-5.8) Baso % (Auto) (0.1-1.2) % Neut # (Auto) (1.56-6.13) K/mm3 Lymph # (Auto) (1.18-3.74) K/mm3 [place] # (Auto) (0.24-0.36) K/mm3 Eos # (Auto) (0.04-0.36) K/mm3 Baso # (Auto) (0.01-0.08) K/mm3 Manual Slide Review Sodium (136-145) mEq/L Potassium (3.5-5.1) mEq/L Chloride (98-107) mEq/L Carbon Dioxide (21-32) mEq/L Anion Gap (5-15) BUN (7-18) mg/dL Creatinine (0.55-1.02) mg/dL Est Cr Clr Drug Dosing mL/min Estimated GFR (MDRD) (>60) mL/min BUN/Creatinine Ratio (14-18) Glucose (74-106) mg/dL Lactic Acid 0.7 (0.4-2.0) mmol/L Calcium (8.5-10.1) mg/dL Magnesium (1.8-2.4) mg/dl C-Reactive Protein (<1.0) mg/dL Monoscreen (NEGATIVE) Jose Results Last 24 Hours: Microbiology 08/29/18 22:40 Aerobic Blood Culture - Preliminary Blood - Venous - Lab Draw NO GROWTH AFTER 2 DAYS Anaerobic Blood Culture - Preliminary NO GROWTH AFTER 2 DAYS 08/29/18 22:34 Aerobic Blood Culture - Preliminary Blood - Venous NO GROWTH AFTER 2 DAYS Anaerobic Blood Culture - Preliminary NO GROWTH AFTER 2 DAYS 08/29/18 15:48 Aerobic Blood Culture - Preliminary Blood - Venous - Lab Draw NO GROWTH AFTER 2 DAYS Anaerobic Blood Culture - Preliminary NO GROWTH AFTER 2 DAYS 08/29/18 15:38 Aerobic Blood Culture - Preliminary Blood - Venous NO GROWTH AFTER 2 DAYS Anaerobic Blood Culture - Preliminary NO GROWTH AFTER 2 DAYS 08/29/18 16:35 Urine Culture - Final Urine, Clean Catch Escherichia Coli Med Orders - Current: Current Medications Acetaminophen (Tylenol) 650 mg PO Q6H PRN PRN Reason: Pain/Fever Last Admin: 08/31/18 14:46 Dose: 650 mg Alprazolam (Xanax) 0.5 mg PO BID PRN PRN Reason: Anxiety Levofloxacin/Dextrose 750 mg/ (Premix) 150 mls @ 100 mls/hr IV Q24H [facility] Last Admin: 08/31/18 16:33 Dose: 100 mls/hr Promethazine HCl 12.5 mg/ (Sodium Chloride) 50.5 mls @ 100 mls/hr IV Q6H PRN PRN Reason: Nausea Ibuprofen (Motrin) 600 mg PO Q6H PRN PRN Reason: Headache Last Admin: 08/31/18 21:37 Dose: 600 mg Ketorolac Tromethamine (Toradol) 15 mg IVPUSH Q8H [facility] Stop: 09/02/18 00:01 Last Admin: 09/01/18 08:08 Dose: 15 mg Miscellaneous Information (Remove Patch) 1 ea TRDERM Q72H [facility] Last Admin: 08/31/18 21:39 Dose: 1 ea Ondansetron HCl (Zofran) 4 mg IVPUSH Q8H PRN PRN Reason: Nausea/Vomiting Phenazopyridine HCl (Urinary Pain Relief) 95 mg PO TIDPC [facility] Last Admin: 09/01/18 08:08 Dose: 95 mg Sertraline HCl (Zoloft) 150 mg PO DAILY [facility] Last Admin: 09/01/18 08:08 Dose: 150 mg Discontinued Medications Ceftriaxone Sodium (Rocephin) 2 gm IVPUSH Q24H [facility] Last Admin: 08/29/18 18:03 Dose: Not Given Sodium Chloride (Normal Saline) 1,000 mls @ 999 mls/hr IV ONETIME ONE Stop: 08/29/18 15:09 Last Admin: 08/29/18 14:25 Dose: 999 mls/hr Lactated Ringer's (Ringers, Lactated) 1,000 mls @ 999 mls/hr IV .BOLUS ONE Stop: 08/29/18 16:17 Last Admin: 08/29/18 15:25 Dose: 999 mls/hr Potassium Chloride 10 meq/ (Premix) 100 mls @ 100 mls/hr IV ONETIME ONE Stop: 08/29/18 16:22 Last Admin: 08/29/18 15:35 Dose: 100 mls/hr Lactated Ringer's (Ringers, Lactated) 1,000 mls @ 999 mls/hr IV .BOLUS ONE Stop: 08/29/18 17:38 Last Admin: 08/29/18 16:55 Dose: 999 mls/hr Potassium Chloride 10 meq/ (Premix) 100 mls @ 100 mls/hr IV ONETIME ONE Stop: 08/29/18 17:38 Last Admin: 08/29/18 16:55 Dose: 100 mls/hr Levofloxacin/Dextrose 750 mg/ (Premix) 150 mls @ 100 mls/hr IV ONETIME ONE Stop: 08/29/18 18:12 Last Admin: 08/29/18 17:24 Dose: 100 mls/hr Dextrose/Sodium Chloride (Dextrose 5%-Normal Saline) 1,000 mls @ 999 mls/hr IV ASDIRECTED [facility] Last Admin: 08/29/18 17:20 Dose: 999 mls/hr Dextrose/Sodium Chloride (Dextrose 5%-Normal Saline) 1,000 mls @ 100 mls/hr IV ASDIRECTED [facility] Last Admin: 08/29/18 21:52 Dose: 100 mls/hr Promethazine HCl 12.5 mg/ (Sodium Chloride) 50.5 mls @ 100 mls/hr IV Q6H [facility] Last Admin: 08/31/18 11:16 Dose: Not Given Sodium Chloride (Normal Saline) 1,000 mls @ 150 mls/hr IV ASDIRECTED [facility] Last Admin: 08/31/18 11:24 Dose: 150 mls/hr Sodium Chloride (Normal Saline) 1,000 mls @ 500 mls/hr IV ONETIME ONE Stop: 08/30/18 00:17 Last Admin: 08/29/18 22:24 Dose: 500 mls/hr Magnesium Sulfate 4 gm/ Premix 50 mls @ 12.5 mls/hr IV ONETIME ONE Stop: 08/30/18 07:29 Last Admin: 08/30/18 03:33 Dose: 12.5 mls/hr Magnesium Sulfate 4 gm/ Premix 50 mls @ 12.5 mls/hr IV ONETIME ONE Stop: 08/30/18 21:59 Last Admin: 08/30/18 18:02 Dose: 12.5 mls/hr Influenza Virus Vaccine (Pharmacy To Dose - Influenza Vaccine) 1 each IM ONETIME ONE Stop: 08/29/18 23:08 Influenza Virus Vaccine (Fluzone Quad 7325-0326 Syringe) 60 mcg IM .ONCE ONE Stop: 08/30/18 10:01 Ketorolac Tromethamine (Toradol) 15 mg IVPUSH ONETIME ONE Stop: 08/29/18 14:35 Last Admin: 08/29/18 14:54 Dose: 15 mg Ketorolac Tromethamine (Toradol) 30 mg IVPUSH ONETIME ONE Stop: 08/29/18 22:16 Last Admin: 08/29/18 22:25 Dose: 30 mg Ondansetron HCl (Zofran Odt) 4 mg PO ONETIME ONE Stop: 08/29/18 14:04 Last Admin: 08/29/18 14:35 Dose: Not Given Ondansetron HCl (Zofran) 4 mg IVPUSH ONETIME ONE Stop: 08/29/18 14:10 Last Admin: 08/29/18 14:20 Dose: 4 mg Potassium Chloride (Klor-Con M20) 40 meq PO ONETIME ONE Stop: 08/29/18 15:18 Last Admin: 08/29/18 16:21 Dose: Not Given Scopolamine (Transderm-Scop) 1.5 mg TRDERM ONETIME ONE Stop: 08/29/18 22:52 Last Admin: 08/29/18 23:34 Dose: 1.5 mg - Exam General: Alert, Oriented, Cooperative, No Acute Distress HEENT: Pupils Equal, Pupils Reactive, EOMI, Mucous Membr. Moist/[place] Neck: Supple Lungs: Clear to Auscultation, Normal Respiratory Effort Cardiovascular: Regular Rate, Regular Rhythm GI/Abdominal Exam: Normal Bowel Sounds, Soft, Non-Tender, No Organomegaly, No Distention, No Abnormal Bruit (Female) Exam: Deferred Back Exam: Normal Inspection, Full Range of Motion, CVA Tenderness (L), Vertebral Tenderness. No: CVA Tenderness (R) Extremities: Normal Inspection, Normal Range of Motion, Non-Tender, No Pedal Edema, Normal Capillary Refill Peripheral Pulses: 3+: Dorsalis Pedis (L), Dorsalis Pedis (R) Skin: Warm, Dry, Intact Neurological: No New Focal Deficit Psy/Mental Status: Alert, Normal Affect, Normal Mood - Problem List Review Problem List Initiated/Reviewed/Updated: Yes - Plan Plan:: Assessment/Plan: Acute: Sepsis, Improving - 2/2 Pyelonephritis - WBC 27.87-->19.60-->15.79 - CRP -->28.3 --->22.3 -->25.8 - Vitals have improved - Had a fever last night as high as 38.2 C - Blood Cx: negative for 2 days - Continue current IV antibiotic Pyelonephritis 2/2 E. Coli - Carries a hx/o UTI in the past - Left CVA tenderness - screening negative - Last sexual contact 2 weeks prior to having symptoms - Offered HIV/STD panel in the hospital; initially agreed but later refused it - Continue current IV antibiotic Pseudo-anemia - Hgb 11.3-->9.9-->9.7 - 2/2 acute illness and poor oral intake E-lytes Abnormality - Hypokalemia and Hypomagnesemia - K 3.3 and Mg 1.6 - 2/2 inadequate intake - Encourage to eat more and will replete and monitor Intermittent Dizziness and Generalized Weakness - 2/2 Above - Encourage to eat more Substance Abuse with Marijuana - UDS pos for THC - Admits to using recreational Marijuana - Counseled on substance abuse Resolved: S/p Dehydration Chronic: ADHD Depression Plan: She looks clinically much better this AM Continue current treatment Discontinue pyridium; she reports not pain Routine AM labs DVT/GI prophylaxis Gynecology referral outpatient Ambulate as tolerated Discharge in 1-2 days
[2018-09-01] MEDS: Levofloxacin/Dextrose 5%-Water 750 MG in Premix Bag 1 BAG IV SCH (16:16)
[2018-09-01] MEDS ORDERED: hydrALAZINE 20 MG/ML SDV IVPUSH PRN (18:04)
[2018-09-01] MEDS ORDERED: Metoprolol Tartrate 5 MG/5 ML SDV IVPUSH PRN (18:04)
[2018-09-01] MEDS ORDERED: Magnesium Oxide 400 MG Tab PO ONE (18:30)
[2018-09-01] MEDS: Potassium Chloride 20 MEQ Tab.ER PO SCH ×2 (19:05→23:05)
[2018-09-02] MEDS: Acetaminophen 325 MG Tab PO PRN ×2 (06:04→15:30)
[2018-09-02] MEDS: Sertraline 50 MG Tab PO SCH (07:59)
[2018-09-02] MEDS ORDERED: Magnesium Sulfate/Water 2 GM in Premix Bag 1 BAG IV ONE (09:15)
[2018-09-02] MEDS: Potassium Chloride 20 MEQ Tab.ER PO SCH ×2 (10:10→12:24)
[2018-09-02] MEDS ORDERED: Saccharomyces Boulardii (Probiotic) 250 MG Cap PO ONE (10:30)
[2018-09-02] MEDS ORDERED: Sodium Chloride 0.9% 500 ML IV ONE (10:56)
[2018-09-02] MEDS ORDERED: Piperacillin/Tazobactam 4.5 GM in Sodium Chloride 0.9% 100 ML IV ONE (11:00)
[2018-09-02] MEDS ORDERED: Iopamidol 755 Mg/ML 200 ML Bottle IV ONE (11:22)
[2018-09-02] MEDS ORDERED: Sodium Chloride 0.9% 10 ML Syringe FLUSH PRN (11:22)
--- NOTE | 2018-09-02 11:56 | PCM.PN ---
- General Info Date of Service: 09/02/18 Admission Dx/Problem (Free Text): Admission Diagnosis/Problem Admission Diagnosis/Problem Pyelonephritis Subjective Update: Less nausea after aggressive treatment of pyelo/sepsis; will continue clear liquids. Functional Status: Reports: Pain Controlled, Tolerating Diet, Ambulating, Urinating. Denies: New Symptoms - Review of Systems General: Reports: Fever. Denies: Weakness, Fatigue, Malaise, Chills HEENT: Reports: No Symptoms Pulmonary: Denies: Shortness of Breath Cardiovascular: Denies: Chest Pain, Dyspnea on Exertion, Lightheadedness Gastrointestinal: Reports: Flatus. Denies: Abdominal Pain, Decreased Appetite, Nausea, Vomiting Genitourinary: Reports: No Symptoms Musculoskeletal: Reports: No Symptoms Skin: Reports: No Symptoms Neurological: Denies: Confusion, Weakness, Gait Disturbance Psychiatric: Denies: Depression, Anxiety, Agitation, Hallucinations Systems Review Comment:: No overnight issues but had a spike of temperature this morning as high as 38.4C. However her leukocytosis has resolved and her CRP is now down to 22K from 25K yesterday. She feels good and eating better. She reports not other complaints. Her K and Mg remains low this AM. - Patient Data Vitals - Most Recent: Last Vital Signs Temp 37.2 C 09/02/18 06:53 Pulse 72 09/02/18 04:01 Resp 16 09/02/18 04:01 BP 111/74 09/02/18 04:01 Pulse Ox 97 09/02/18 04:01 Orthostatic Blood Pressure [ 90/56 Standing] Orthostatic Blood Pressure [ 111/73 Sitting] Orthostatic Blood Pressure [ 95/66 Supine] Weight - Most Recent: 69.899 kg I&O - Last 24 Hours: Intake & Output 09/01/18 09/02/18 09/02/18 22:59 06:59 14:59 Intake Total 1000 1800 240 Output Total 1600 Balance -600 1800 240 Lab Results Last 24 Hours: Laboratory Results - last 24 hr 09/02/18 09/02/18 09/02/18 Range/Units 06:35 06:35 06:35 WBC 9.57 (3.98-10.04) K/mm3 RBC 3.51 L (3.98-5.22) M/mm3 Hgb 9.7 L (11.2-15.7) gm/L Hct 28.7 L (34.1-44.9) % MCV 81.8 (79.4-94.8) fl MCH 27.6 (25.6-32.2) pg MCHC 33.8 (32.2-35.5) g/dl RDW Std Deviation 36.5 (36.4-46.3) fL Plt Count 210 (182-369) K/mm3 MPV 9.4 (9.4-12.3) fl Neut % (Auto) 69.6 (34.0-71.1) % Lymph % (Auto) 14.5 L (19.3-51.7) % [place] % (Auto) 15.0 H (4.7-12.5) % Eos % (Auto) 0.2 L (0.7-5.8) Baso % (Auto) 0.1 (0.1-1.2) % Neut # (Auto) 6.65 H (1.56-6.13) K/mm3 Lymph # (Auto) 1.39 (1.18-3.74) K/mm3 [place] # (Auto) 1.44 H (0.24-0.36) K/mm3 Eos # (Auto) 0.02 L (0.04-0.36) K/mm3 Baso # (Auto) 0.01 (0.01-0.08) K/mm3 Sodium 132 L (136-145) mEq/L Potassium 3.4 L (3.5-5.1) mEq/L Chloride 100 (98-107) mEq/L Carbon Dioxide 20 L (21-32) mEq/L Anion Gap 15.4 H (5-15) BUN 7 (7-18) mg/dL Creatinine 0.6 (0.55-1.02) mg/dL Est Cr Clr Drug Dosing 156.30 mL/min Estimated GFR (MDRD) > 60 (>60) mL/min BUN/Creatinine Ratio 11.7 L (14-18) Glucose 83 (74-106) mg/dL Lactic Acid 0.5 (0.4-2.0) mmol/L Calcium 7.7 L (8.5-10.1) mg/dL Magnesium 1.6 L (1.8-2.4) mg/dl C-Reactive Protein 22.1 H* (<1.0) mg/dL Jose Results Last 24 Hours: Microbiology 08/29/18 22:40 Aerobic Blood Culture - Preliminary Blood - Venous - Lab Draw NO GROWTH AFTER 3 DAYS Anaerobic Blood Culture - Preliminary NO GROWTH AFTER 3 DAYS 08/29/18 22:34 Aerobic Blood Culture - Preliminary Blood - Venous NO GROWTH AFTER 3 DAYS Anaerobic Blood Culture - Preliminary NO GROWTH AFTER 3 DAYS 08/29/18 15:48 Aerobic Blood Culture - Preliminary Blood - Venous - Lab Draw NO GROWTH AFTER 3 DAYS Anaerobic Blood Culture - Preliminary NO GROWTH AFTER 3 DAYS 08/29/18 15:38 Aerobic Blood Culture - Preliminary Blood - Venous NO GROWTH AFTER 3 DAYS Anaerobic Blood Culture - Preliminary NO GROWTH AFTER 3 DAYS Med Orders - Current: Current Medications Acetaminophen (Tylenol) 650 mg PO Q6H PRN PRN Reason: Pain/Fever Last Admin: 09/02/18 06:04 Dose: 650 mg Alprazolam (Xanax) 0.5 mg PO BID PRN PRN Reason: Anxiety Hydralazine HCl (Apresoline) 20 mg IVPUSH Q4H PRN PRN Reason: Hypertension Levofloxacin/Dextrose 750 mg/ (Premix) 150 mls @ 100 mls/hr IV Q24H [facility] Last Admin: 09/01/18 16:16 Dose: 100 mls/hr Promethazine HCl 12.5 mg/ (Sodium Chloride) 50.5 mls @ 100 mls/hr IV Q6H PRN PRN Reason: Nausea Piperacillin Sod/Tazobactam (Sod 4.5 gm/ Sodium Chloride) 100 mls @ 25 mls/hr IV Q8H [facility] Ibuprofen (Motrin) 600 mg PO Q6H PRN PRN Reason: Headache Last Admin: 08/31/18 21:37 Dose: 600 mg Magnesium Sulfate (Pharmacy To Dose - Magnesium Replacement) 1 dose .XX ASDIRECTED PRN PRN Reason: PHARMACY TO WATCH MAG LEVELS Metoprolol Tartrate (Lopressor) 5 mg IVPUSH Q4H PRN PRN Reason: Tachycardia Miscellaneous Information (Remove Patch) 1 ea TRDERM Q72H [facility] Last Admin: 08/31/18 21:39 Dose: 1 ea Ondansetron HCl (Zofran) 4 mg IVPUSH Q8H PRN PRN Reason: Nausea/Vomiting Potassium Chloride (Pharmacy To Dose - Potassium Replacement) 1 dose .XX ASDIRECTED PRN PRN Reason: PHARMACY TO WATCH K LEVELS Potassium Chloride (Klor-Con M20) 40 meq PO Q4H [facility] Stop: 09/02/18 13:16 Last Admin: 09/02/18 10:10 Dose: 40 meq Saccharomyces Boulardii (Florastor) 250 mg PO BID [facility] Sertraline HCl (Zoloft) 150 mg PO DAILY [facility] Last Admin: 09/02/18 07:59 Dose: 150 mg Sodium Chloride (Saline Flush) 10 ml FLUSH ONETIME PRN PRN Reason: IV FLUSH Discontinued Medications Ceftriaxone Sodium (Rocephin) 2 gm IVPUSH Q24H [facility] Last Admin: 08/29/18 18:03 Dose: Not Given Sodium Chloride (Normal Saline) 1,000 mls @ 999 mls/hr IV ONETIME ONE Stop: 08/29/18 15:09 Last Admin: 08/29/18 14:25 Dose: 999 mls/hr Lactated Ringer's (Ringers, Lactated) 1,000 mls @ 999 mls/hr IV .BOLUS ONE Stop: 08/29/18 16:17 Last Admin: 08/29/18 15:25 Dose: 999 mls/hr Potassium Chloride 10 meq/ (Premix) 100 mls @ 100 mls/hr IV ONETIME ONE Stop: 08/29/18 16:22 Last Admin: 08/29/18 15:35 Dose: 100 mls/hr Lactated Ringer's (Ringers, Lactated) 1,000 mls @ 999 mls/hr IV .BOLUS ONE Stop: 08/29/18 17:38 Last Admin: 08/29/18 16:55 Dose: 999 mls/hr Potassium Chloride 10 meq/ (Premix) 100 mls @ 100 mls/hr IV ONETIME ONE Stop: 08/29/18 17:38 Last Admin: 08/29/18 16:55 Dose: 100 mls/hr Levofloxacin/Dextrose 750 mg/ (Premix) 150 mls @ 100 mls/hr IV ONETIME ONE Stop: 08/29/18 18:12 Last Admin: 08/29/18 17:24 Dose: 100 mls/hr Dextrose/Sodium Chloride (Dextrose 5%-Normal Saline) 1,000 mls @ 999 mls/hr IV ASDIRECTED [facility] Last Admin: 08/29/18 17:20 Dose: 999 mls/hr Dextrose/Sodium Chloride (Dextrose 5%-Normal Saline) 1,000 [facility] Admin: 08/29/18 21:52 Dose: 100 mls/hr Promethazine HCl 12.5 mg/ (Sodium Chloride) 50.5 mls @ 100 mls/hr IV Q6H [facility] Last Admin: 08/31/18 11:16 Dose: Not Given Sodium Chloride (Normal Saline) 1,000 mls @ [facility] Last Admin: 08/31/18 11:24 Dose: 150 mls/hr Sodium Chloride (Normal Saline) 1,000 mls @ 500 mls/hr IV ONETIME ONE Stop: 08/30/18 00:17 Last Admin: 08/29/18 22:24 Dose: 500 mls/hr Magnesium Sulfate 4 gm/ Premix 50 mls @ 12.5 mls/hr IV ONETIME ONE Stop: 08/30/18 07:29 Last Admin: 08/30/18 03:33 Dose: 12.5 mls/hr Magnesium Sulfate 4 gm/ Premix 50 mls @ 12.5 mls/hr IV ONETIME ONE Stop: 08/30/18 21:59 Last Admin: 08/30/18 18:02 Dose: 12.5 mls/hr Magnesium Sulfate 2 gm/ Premix 50 mls @ 25 mls/hr IV ONETIME ONE Stop: 09/02/18 11:14 Last Admin: 09/02/18 10:11 Dose: 25 mls/hr Piperacillin Sod/Tazobactam (Sod 4.5 gm/ Sodium Chloride) 100 mls @ 200 mls/hr IV ONETIME ONE Stop: 09/02/18 11:29 Sodium Chloride (Normal Saline) 500 mls @ 999 mls/hr IV .BOLUS ONE Stop: 09/02/18 11:26 Last Admin: 09/02/18 11:15 Dose: 999 mls/hr Influenza Virus Vaccine (Pharmacy To Dose - Influenza Vaccine) 1 each IM ONETIME ONE Stop: 08/29/18 23:08 Influenza Virus Vaccine (Fluzone Quad [id number] Syringe) 60 mcg IM .ONCE ONE Stop: 08/30/18 10:01 Iopamidol (Isovue-370 (76%)) 100 ml IV ONETIME ONE Stop: 09/02/18 11:23 Ketorolac Tromethamine (Toradol) 15 mg IVPUSH ONETIME ONE Stop: 08/29/18 14:35 Last Admin: 08/29/18 14:54 Dose: 15 mg Ketorolac Tromethamine (Toradol) 30 mg IVPUSH ONETIME ONE Stop: 08/29/18 22:16 Last Admin: 08/29/18 22:25 Dose: 30 mg Ketorolac Tromethamine (Toradol) 15 mg IVPUSH Q8H [facility] Stop: 09/02/18 00:01 Last Admin: 09/01/18 23:06 Dose: 15 mg Magnesium Oxide (Magnesium Oxide) 400 mg PO ONETIME ONE Stop: 09/01/18 18:31 Last Admin: 09/01/18 19:06 Dose: 400 mg Ondansetron HCl (Zofran Odt) 4 mg PO ONETIME ONE Stop: 08/29/18 14:04 Last Admin: 08/29/18 14:35 Dose: Not Given Ondansetron HCl (Zofran) 4 mg IVPUSH ONETIME ONE Stop: 08/29/18 14:10 Last Admin: 08/29/18 14:20 Dose: 4 mg Phenazopyridine HCl (Urinary Pain Relief) 95 mg PO TIDPC [facility] Last Admin: 09/01/18 08:08 Dose: 95 mg Potassium Chloride (Klor-Con M20) 40 meq PO ONETIME ONE Stop: 08/29/18 15:18 Last Admin: 08/29/18 16:21 Dose: Not Given Potassium Chloride (Klor-Con M20) 40 meq PO Q4H [facility] Stop: 09/01/18 22:31 Last Admin: 09/01/18 23:05 Dose: 40 meq Saccharomyces Boulardii (Florastor) 250 mg PO ONETIME ONE Stop: 09/02/18 10:31 Last Admin: 09/02/18 10:34 Dose: 250 mg Scopolamine (Transderm-Scop) 1.5 mg TRDERM ONETIME ONE Stop: 08/29/18 22:52 Last Admin: 08/29/18 23:34 Dose: 1.5 mg - Exam General: Alert, Oriented, Cooperative, No Acute Distress HEENT: Pupils Equal, Pupils Reactive, EOMI, Mucous Membr. Moist/[place] Neck: Supple, Trachea Midline Lungs: Clear to Auscultation, Normal Respiratory Effort Cardiovascular: Regular Rate, Regular Rhythm GI/Abdominal Exam: Normal Bowel Sounds, Soft, Non-Tender, No Organomegaly, No Distention, No Abnormal Bruit (Female) Exam: Deferred Back Exam: Normal Inspection, Full Range of Motion, CVA Tenderness (L) (minimal) Extremities: Normal Inspection, Normal Range of Motion, Non-Tender, No Pedal Edema, Normal Capillary Refill Peripheral Pulses: 0: Posterior Tibial (R), 3+: Posterior Tibial (L), Dorsalis Pedis (L), Dorsalis Pedis (R) Skin: Warm, Dry, Intact. No: Rash, Ecchymosis Neurological: No New Focal Deficit, Normal Gait Psy/Mental Status: Alert, Normal Affect, Normal Mood - Problem List Review Problem List Initiated/Reviewed/Updated: Yes - My Orders Last 24 Hours: My Active Orders 09/01/18 18:04 Metoprolol Tartrate [Lopressor] 5 mg IVPUSH Q4H PRN hydrALAZINE [Apresoline] 20 mg IVPUSH Q4H PRN 09/01/18 18:15 Pharmacy to Dose - Magnesium R [Pharmacy to Dose - Magnesium Replacement] 1 dose .XX ASDIRECTED PRN Pharmacy to Dose - Potassium R [Pharmacy to Dose - Potassium Replacement] 1 dose .XX ASDIRECTED PRN 09/01/18 Lunch Regular Diet [DIET] 09/02/18 09:15 Potassium Chloride [Klor-Con M20] 40 meq PO Q4H 09/02/18 10:51 Abdomen Pelvis w Cont [CT] Routine 09/02/18 19:00 Piperacillin/Tazobactam [Piperacil-Tazobact] 4.5 gm Sodium Chloride 0.9% [ Normal Saline] 100 ml IV Q8H 09/02/18 21:00 Saccharomyces Boulardii [Florastor] 250 mg PO BID - Plan Plan:: Assessment/Plan: Acute: Sepsis, Continues to Improve - 2/2 Pyelonephritis - WBC 27.87-->19.60-->15.79--> 9.57 - CRP -->28.3 --->22.3 -->25.8-->22.1 - Vitals have improved - Had a fever last night as high as 38.2 C; had a fever this AM as high as 38.4C - Blood Cx: negative for 3 days - Will add IV 4.5 mg Zosyn Q6H to 750 mg IV Levaquin daily due to persistent fever Pyelonephritis w/ Abscess - 2/2 E. Coli - Carries a hx/o UTI in the past - Left CVA tenderness - screening negative - Last sexual contact 2 weeks prior to having symptoms - Offered HIV/STD panel in the hospital; initially agreed but later refused it - Continue current IV antibiotic plus IV Zosyn 4.5 mg Q6H - CT scan report reads large areas of diminished perfusion within the left kidney which is compatible with infection. Several more focal areas of low density noted which are felt compatible with early abscess formation within the same area. - Informed patient, abnormal finding does warrant transfer and interventional specialist at this point Pseudo-anemia - Hgb 11.3-->9.9-->9.7--> same - 2/2 acute illness and poor oral intake E-lytes Abnormality - Hypokalemia and Hypomagnesemia - K 3.3-->3.4 and Mg 1.6-->same - 2/2 inadequate intake - Encourage to eat more and will replete and monitor Substance Abuse with Marijuana - UDS pos for THC - Admits to using recreational Marijuana - Counseled on substance abuse Additional CT scan Finding - Ovarian Cyst Rupture or Leakage - 3.3 cm cyst within the left ovary Resolved: S/p Dehydration S/p Intermittent Dizziness and Generalized Weakness - 2/2 Above - Encourage to eat more Chronic: ADHD Depression Plan: She looks clinically much better this AM Continue current treatment Routine AM labs DVT/GI prophylaxis Gynecology referral outpatient Ambulate as tolerated Additional orders as above Discharge in 2-3 days
--- NOTE | 2018-09-02 12:42 | CT ---
CT abdomen and pelvis Technique: Multiple axial sections were obtained through the kidneys. Study obtained during the nephrogram phase after contrast administration. Delayed images were then obtained from slightly below the inferior diaphragm through the pubic symphysis. Findings: Large area of decreased perfusion is seen within the mid left kidney measuring approximately 5.9 cm in greatest size. This is compatible with large area of infection. Several more focal low density areas are seen within this area compatible with early abscess formation. Right kidney appears normal. Delayed images show contrast excretion from both kidneys into the ureters and bladder. There is a fairly large amount of free fluid within the cul-de-sac which is simple Hounsfield unit measurements and most likely represents cyst rupture or leakage. There is a cyst being seen within the left ovary measuring 3.3 cm. Visualized lung bases showed nothing acute. Noncontrast appearance of the liver and spleen appears within normal limits. Adrenal glands show no nodule. Pancreas appears within normal limits. Gallbladder contains no calcified gallstones. Aorta shows no aneurysm. No retroperitoneal adenopathy or mesenteric abnormalities are seen. Bone window settings were reviewed which appear within normal limits for the patient's age. Impression: 1. Large area of diminished perfusion within the left kidney which is compatible with infection. Several more focal areas of low density noted which are felt compatible with early abscess formation within the same area. 2. Fair amount of free fluid within the cul-de-sac most likely representing ovarian cyst rupture or leakage. 3.3 cm cyst noted within the left ovary. 3. No additional abnormality is appreciated. Diagnostic code #5 [facility] [employer] called report to Dr. Erlin Pierce at 12:31 on 09/02/2018
[2018-09-02] MEDS ORDERED: Potassium Chloride 20 MEQ Tab.ER PO PRN (15:30)
[2018-09-02] MEDS: Levofloxacin/Dextrose 5%-Water 750 MG in Premix Bag 1 BAG IV SCH (15:33)
[2018-09-02] MEDS: Piperacillin/Tazobactam 4.5 GM in Sodium Chloride 0.9% 100 ML IV SCH (18:22)
[2018-09-02] MEDS: Saccharomyces Boulardii (Probiotic) 250 MG Cap PO SCH (20:20)
[2018-09-03] MEDS: Acetaminophen 325 MG Tab PO PRN (03:04)
[2018-09-03] MEDS: Piperacillin/Tazobactam 4.5 GM in Sodium Chloride 0.9% 100 ML IV SCH ×3 (03:08→18:00)
[2018-09-03] MEDS: Saccharomyces Boulardii (Probiotic) 250 MG Cap PO SCH ×2 (09:13→21:13)
[2018-09-03] MEDS: Sertraline 50 MG Tab PO SCH (09:13)
--- NOTE | 2018-09-03 11:42 | PCM.PN ---
- General Info Date of Service: 09/03/18 Admission Dx/Problem (Free Text): Admission Diagnosis/Problem Admission Diagnosis/Problem Pyelonephritis Subjective Update: Less nausea after aggressive treatment of pyelo/sepsis; will continue clear liquids. Functional Status: Reports: Pain Controlled, Tolerating Diet, Ambulating, Urinating, New Symptoms - Review of Systems General: Reports: Fever. Denies: Weakness, Fatigue, Malaise, Chills HEENT: Reports: No Symptoms Pulmonary: Denies: Shortness of Breath, Pleuritic Chest Pain, Cough, Sputum Cardiovascular: Denies: Chest Pain Gastrointestinal: Reports: Vomiting. Denies: Abdominal Pain, Decreased Appetite , Diarrhea, Difficulty Swallowing, Flatus, Hematochezia, Nausea Genitourinary: Reports: No Symptoms Musculoskeletal: Reports: No Symptoms Skin: Denies: Cyanosis, Mottled, Diaphoresis, Bruising Neurological: Reports: Headache. Denies: Confusion, Difficulty Walking, Weakness, Gait Disturbance Psychiatric: Denies: Depression, Anxiety, Agitation, Hallucinations Systems Review Comment:: Had a low grade temp of 100.1 and had a one time emesis this am after getting her morning pills. Also report some headaches but otherwise she looks clinically stable. Her WBC slightly up at 10.42 and her CRP continues to trend down. She continues to ambulate and her e-lytes are much better. - Patient Data Vitals - Most Recent: Last Vital Signs Temp 36.6 C 09/03/18 08:26 Pulse 51 L 09/03/18 08:26 Resp 20 09/03/18 08:26 BP 108/63 09/03/18 08:26 Pulse Ox 98 09/03/18 08:26 Orthostatic Blood Pressure [ 90/56 Standing] Orthostatic Blood Pressure [ 111/73 Sitting] Orthostatic Blood Pressure [ 95/66 Supine] Weight - Most Recent: 67.495 kg I&O - Last 24 Hours: Intake & Output 09/02/18 09/03/18 09/03/18 22:59 06:59 14:59 Intake Total 2540 1300 Balance 2540 1300 Lab Results Last 24 Hours: Laboratory Results - last 24 hr 09/03/18 09/03/18 09/03/18 Range/Units 05:50 05:50 05:50 WBC 10.42 H (3.98-10.04) K/mm3 RBC 4.08 (3.98-5.22) M/mm3 Hgb 11.3 (11.2-15.7) gm/L Hct 33.2 L (34.1-44.9) % MCV 81.4 (79.4-94.8) fl MCH 27.7 (25.6-32.2) pg MCHC 34.0 (32.2-35.5) g/dl RDW Std Deviation 36.8 (36.4-46.3) fL Plt Count 255 (182-369) K/mm3 MPV 9.0 L (9.4-12.3) fl Neut % (Auto) 63.4 (34.0-71.1) % Lymph % (Auto) 15.8 L (19.3-51.7) % [place] % (Auto) 18.7 H (4.7-12.5) % Eos % (Auto) 0.2 L (0.7-5.8) Baso % (Auto) 0.2 (0.1-1.2) % Neut # (Auto) 6.60 H (1.56-6.13) K/mm3 Lymph # (Auto) 1.65 (1.18-3.74) K/mm3 [place] # (Auto) 1.95 H (0.24-0.36) K/mm3 Eos # (Auto) 0.02 L (0.04-0.36) K/mm3 Baso # (Auto) 0.02 (0.01-0.08) K/mm3 Manual Slide Review Abnormal smear Sodium 138 (136-145) mEq/L Potassium 3.6 (3.5-5.1) mEq/L Chloride 102 (98-107) mEq/L Carbon Dioxide 22 (21-32) mEq/L Anion Gap 17.6 H (5-15) BUN 4 L (7-18) mg/dL Creatinine 0.7 (0.55-1.02) mg/dL Est Cr Clr Drug Dosing 133.98 mL/min Estimated GFR (MDRD) > 60 (>60) mL/min BUN/Creatinine Ratio 5.7 L (14-18) Glucose 104 (74-106) mg/dL Calcium 8.5 (8.5-10.1) mg/dL Magnesium 1.9 (1.8-2.4) mg/dl C-Reactive Protein 16.4 H* (<1.0) mg/dL Jose Results Last 24 Hours: Microbiology 08/29/18 22:40 Aerobic Blood Culture - Preliminary Blood - Venous - Lab Draw NO GROWTH AFTER 4 DAYS Anaerobic Blood Culture - Preliminary NO GROWTH AFTER 4 DAYS 08/29/18 22:34 Aerobic Blood Culture - Preliminary Blood - Venous NO GROWTH AFTER 4 DAYS Anaerobic Blood Culture - Preliminary NO GROWTH AFTER 4 DAYS 08/29/18 15:48 Aerobic Blood Culture - Preliminary Blood - Venous - Lab Draw NO GROWTH AFTER 4 DAYS Anaerobic Blood Culture - Preliminary NO GROWTH AFTER 4 DAYS 08/29/18 15:38 Aerobic Blood Culture - Preliminary Blood - Venous NO GROWTH AFTER 4 DAYS Anaerobic Blood Culture - Preliminary NO GROWTH AFTER 4 DAYS Med Orders - Current: Current Medications Acetaminophen (Tylenol) 650 mg PO Q6H PRN PRN Reason: Pain/Fever Last Admin: 09/03/18 03:04 Dose: 650 mg Alprazolam (Xanax) 0.5 mg PO BID PRN PRN Reason: Anxiety Hydralazine HCl (Apresoline) 20 mg IVPUSH Q4H PRN PRN Reason: Hypertension Levofloxacin/Dextrose 750 mg/ (Premix) 150 mls @ 100 mls/hr IV Q24H [facility] Last Admin: 09/02/18 15:33 Dose: 100 mls/hr Promethazine HCl 12.5 mg/ (Sodium Chloride) 50.5 mls @ 100 mls/hr IV Q6H PRN PRN Reason: Nausea Piperacillin Sod/Tazobactam (Sod 4.5 gm/ Sodium Chloride) 100 mls @ 25 mls/hr IV Q8H [facility] Last Admin: 09/03/18 11:37 Dose: 25 mls/hr Ibuprofen (Motrin) 600 mg PO Q6H PRN PRN Reason: Headache Last Admin: 08/31/18 21:37 Dose: 600 mg Magnesium Sulfate (Pharmacy To Dose - Magnesium Replacement) 1 dose .XX ASDIRECTED PRN PRN Reason: PHARMACY TO WATCH MAG LEVELS Metoprolol Tartrate (Lopressor) 5 mg IVPUSH Q4H PRN PRN Reason: Tachycardia Miscellaneous Information (Remove Patch) 1 ea TRDERM Q72H [facility] Last Admin: 08/31/18 21:39 Dose: 1 ea Ondansetron HCl (Zofran) 4 mg IVPUSH Q8H PRN PRN Reason: Nausea/Vomiting Saccharomyces Boulardii (Florastor) 250 mg PO BID [facility] Last Admin: 09/03/18 09:13 Dose: 250 mg Sertraline HCl (Zoloft) 150 mg PO DAILY [facility] Last Admin: 09/03/18 09:13 Dose: 150 mg Sodium Chloride (Saline Flush) 10 ml FLUSH ONETIME PRN PRN Reason: IV FLUSH Last Admin: 09/02/18 11:58 Dose: 10 ml Discontinued Medications Ceftriaxone Sodium (Rocephin) 2 gm IVPUSH Q24H [facility] Last Admin: 08/29/18 18:03 Dose: Not Given Sodium Chloride (Normal Saline) 1,000 mls @ 999 mls/hr IV ONETIME ONE Stop: 08/29/18 15:09 Last Admin: 08/29/18 14:25 Dose: 999 mls/hr Lactated Ringer's (Ringers, Lactated) 1,000 mls @ 999 mls/hr IV .BOLUS ONE Stop: 08/29/18 16:17 Last Admin: 08/29/18 15:25 Dose: 999 mls/hr Potassium Chloride 10 meq/ (Premix) 100 mls @ 100 mls/hr IV ONETIME ONE Stop: 08/29/18 16:22 Last Admin: 08/29/18 15:35 Dose: 100 mls/hr Lactated Ringer's (Ringers, Lactated) 1,000 mls @ 999 mls/hr IV .BOLUS ONE Stop: 08/29/18 17:38 Last Admin: 08/29/18 16:55 Dose: 999 mls/hr Potassium Chloride 10 meq/ (Premix) 100 mls @ 100 mls/hr IV ONETIME ONE Stop: 08/29/18 17:38 Last Admin: 08/29/18 16:55 Dose: 100 mls/hr Levofloxacin/Dextrose 750 mg/ (Premix) 150 mls @ 100 mls/hr IV ONETIME ONE Stop: 08/29/18 18:12 Last Admin: 08/29/18 17:24 Dose: 100 mls/hr Dextrose/Sodium Chloride (Dextrose 5%-Normal Saline) 1,000 mls @ 999 mls/hr IV ASDIRECTED [facility] Last Admin: 08/29/18 17:20 Dose: 999 mls/hr Dextrose/Sodium Chloride (Dextrose 5%-Normal Saline) 1,000 mls @ 100 mls/hr IV ASDIRECTED [facility] Last Admin: 08/29/18 21:52 Dose: 100 mls/hr Promethazine HCl 12.5 mg/ (Sodium Chloride) 50.5 mls @ 100 mls/hr IV Q6H [facility] Last Admin: 08/31/18 11:16 Dose: Not Given Sodium Chloride (Normal Saline) 1,000 mls @ 150 mls/hr IV ASDIRECTED [facility] Last Admin: 08/31/18 11:24 Dose: 150 mls/hr Sodium Chloride (Normal Saline) 1,000 mls @ 500 mls/hr IV ONETIME ONE Stop: 08/30/18 00:17 Last Admin: 08/29/18 22:24 Dose: 500 mls/hr Magnesium Sulfate 4 gm/ Premix 50 mls @ 12.5 mls/hr IV ONETIME ONE Stop: 08/30/18 07:29 Last Admin: 08/30/18 03:33 Dose: 12.5 mls/hr Magnesium Sulfate 4 gm/ Premix 50 mls @ 12.5 mls/hr IV ONETIME ONE Stop: 08/30/18 21:59 Last Admin: 08/30/18 18:02 Dose: 12.5 mls/hr Magnesium Sulfate 2 gm/ Premix 50 mls @ 25 mls/hr IV ONETIME ONE Stop: 09/02/18 11:14 Last Admin: 09/02/18 10:11 Dose: 25 mls/hr Piperacillin Sod/Tazobactam (Sod 4.5 gm/ Sodium Chloride) 100 mls @ 200 mls/hr IV ONETIME ONE Stop: 09/02/18 11:29 Last Admin: 09/02/18 12:49 Dose: 200 mls/hr Sodium Chloride (Normal Saline) 500 mls @ 999 mls/hr IV .BOLUS ONE Stop: 09/02/18 11:26 Last Admin: 09/02/18 11:15 Dose: 999 mls/hr Influenza Virus Vaccine (Pharmacy To Dose - Influenza Vaccine) 1 each IM ONETIME ONE Stop: 08/29/18 23:08 Influenza Virus Vaccine (Fluzone Quad [id number] Syringe) 60 mcg IM .ONCE ONE Stop: 08/30/18 10:01 Iopamidol (Isovue-370 (76%)) 100 ml IV ONETIME ONE Stop: 09/02/18 11:23 Last Admin: 09/02/18 11:56 Dose: 100 ml Ketorolac Tromethamine (Toradol) 15 mg IVPUSH ONETIME ONE Stop: 08/29/18 14:35 Last Admin: 08/29/18 14:54 Dose: 15 mg Ketorolac Tromethamine (Toradol) 30 mg IVPUSH ONETIME ONE Stop: 08/29/18 22:16 Last Admin: 08/29/18 22:25 Dose: 30 mg Ketorolac Tromethamine (Toradol) 15 mg IVPUSH Q8H [facility] Stop: 09/02/18 00:01 Last Admin: 09/01/18 23:06 Dose: 15 mg Magnesium Oxide (Magnesium Oxide) 400 mg PO ONETIME ONE Stop: 09/01/18 18:31 Last Admin: 09/01/18 19:06 Dose: 400 mg Ondansetron HCl (Zofran Odt) 4 mg PO ONETIME ONE Stop: 08/29/18 14:04 Last Admin: 08/29/18 14:35 Dose: Not Given Ondansetron HCl (Zofran) 4 mg IVPUSH ONETIME ONE Stop: 08/29/18 14:10 Last Admin: 08/29/18 14:20 Dose: 4 mg Phenazopyridine HCl (Urinary Pain Relief) 95 mg PO TIDPC [facility] Last Admin: 09/01/18 08:08 Dose: 95 mg Potassium Chloride (Klor-Con M20) 40 meq PO ONETIME ONE Stop: 08/29/18 15:18 Last Admin: 08/29/18 16:21 Dose: Not Given Potassium Chloride (Pharmacy To Dose - Potassium Replacement) 1 dose .XX ASDIRECTED PRN PRN Reason: PHARMACY TO WATCH K LEVELS Potassium Chloride (Klor-Con M20) 40 meq PO Q4H [facility] Stop: 09/01/18 22:31 Last Admin: 09/01/18 23:05 Dose: 40 meq Potassium Chloride (Klor-Con M20) 40 meq PO Q4H [facility] Stop: 09/02/18 13:16 Last Admin: 09/02/18 12:24 Dose: 40 meq Potassium Chloride (Klor-Con M20) 60 meq PO DAILY PRN PRN Reason: Other Saccharomyces Boulardii (Florastor) 250 mg PO ONETIME ONE Stop: 09/02/18 10:31 Last Admin: 09/02/18 10:34 Dose: 250 mg Scopolamine (Transderm-Scop) 1.5 mg TRDERM ONETIME ONE Stop: 08/29/18 22:52 Last Admin: 08/29/18 23:34 Dose: 1.5 mg - Exam General: Alert, Oriented, Cooperative, No Acute Distress HEENT: Pupils Equal, Pupils Reactive, EOMI, Mucous Membr. Moist/[place] Neck: Supple, Trachea Midline, No JVD, No Thyromegaly Lungs: Clear to Auscultation, Normal Respiratory Effort Cardiovascular: Regular Rate, Regular Rhythm GI/Abdominal Exam: Normal Bowel Sounds, Soft, Non-Tender, No Organomegaly, No Distention, No Abnormal Bruit (Female) Exam: Deferred Back Exam: Normal Inspection, Full Range of Motion, CVA Tenderness (L) (mild) Extremities: Normal Inspection, Normal Range of Motion, Non-Tender, No Pedal Edema, Normal Capillary Refill Peripheral Pulses: 3+: Dorsalis Pedis (L), Dorsalis Pedis (R) Skin: Warm, Dry, Intact Neurological: No New Focal Deficit Psy/Mental Status: Alert, Normal Affect, Normal Mood - Problem List Review Problem List Initiated/Reviewed/Updated: Yes - My Orders Last 24 Hours: My Active Orders 09/02/18 19:00 Piperacillin/Tazobactam [Piperacil-Tazobact] 4.5 gm Sodium Chloride 0.9% [ Normal Saline] 100 ml IV Q8H 09/02/18 21:00 Saccharomyces Boulardii [Florastor] 250 mg PO BID - Plan Plan:: Assessment/Plan: Acute: Sepsis, Continues to Improve - 2/2 Pyelonephritis - WBC 27.87-->19.60-->15.79--> 9.57-->10.46 - CRP -->28.3 --->22.3 -->25.8-->22.1-->16.4 - Vitals have improved - Had a fever last night as high as 38.2 C; had a fever this AM as high as 38.4C - Blood Cx: negative for 3 days - Will add IV 4.5 mg Zosyn Q6H to 750 mg IV Levaquin daily due to persistent fever Pyelonephritis w/ Abscess - 2/2 E. Coli - Carries a hx/o UTI in the past - Left CVA tenderness - screening negative - Last sexual contact 2 weeks prior to having symptoms - Offered HIV/STD panel in the hospital; initially agreed but later refused it - Continue current IV antibiotic plus IV Zosyn 4.5 mg Q6H - CT scan report reads large areas of diminished perfusion within the left kidney which is compatible with infection. Several more focal areas of low density noted which are felt compatible with early abscess formation within the same area. - Informed patient, abnormal finding does warrant transfer and interventional specialist at this point Headache - Fioricet 1 tab po PRN Q6H - Encourage to caffeine intake, if she drinks coffee or caffeinated products Substance Abuse with Marijuana - UDS pos for THC - Admits to using recreational Marijuana - Counseled on substance abuse Additional CT scan Finding - Ovarian Cyst Rupture or Leakage - 3.3 cm cyst within the left ovary Resolved: S/p Dehydration S/p Intermittent Dizziness and Generalized Weakness - 2/2 Above - Encourage to eat more S/p Pseudo-anemia - Hgb 11.3-->9.9-->9.7--> same--> now 11.3 - 2/2 acute illness and poor oral intake s/p E-lytes Abnormality - Hypokalemia and Hypomagnesemia - K 3.3-->3.4-->3.6 and Mg 1.6-->same-->1.9 - 2/2 inadequate intake - Encourage to eat more and will replete and monitor Chronic: ADHD Depression Plan: She remains clinically stable Continue current treatment Routine AM labs DVT/GI prophylaxis Gynecology referral outpatient Ambulate as tolerated Additional orders as above Repeat imaging study outpatient Discharge in 2-3 days
[2018-09-03] MEDS ORDERED: Acetaminophen/Butalbital/Caffeine 325-50-40 MG Tab PO PRN (13:12)
[2018-09-03] MEDS ORDERED: Ketorolac 30 MG/ML SDV IVPUSH PRN (13:13)
[2018-09-03] MEDS: Levofloxacin/Dextrose 5%-Water 750 MG in Premix Bag 1 BAG IV SCH (16:03)
[2018-09-04] MEDS: Piperacillin/Tazobactam 4.5 GM in Sodium Chloride 0.9% 100 ML IV SCH (03:25)
[2018-09-04] MEDS: Saccharomyces Boulardii (Probiotic) 250 MG Cap PO SCH (09:16)
[2018-09-04] MEDS: Sertraline 50 MG Tab PO SCH (09:16)
--- NOTE | 2018-09-04 09:44 | PCM.DCSUM1 ---
Discharge Summary - Hospital Course Free Text/Narrative:: Patient was primarily admitted for abdominal pain and was diagnosed with urosepsis but with further testing, pyelonephritis with abscess. She was initially treated with a single intravenous antibiotic but continued to have persistent fever and therefore abdominal/pelvis ct scan was ordered to r/o obstruction and or abscess. The imaging report found early abscess, ruptured cysts and a small ovarian cyst measuring 3.3 cm in the left ovary. With these findings, an additional intravenous antibiotic was added to treat her gram negative organism in her urine and she gradually improved on this regimen. Her blood cultures however grew nothing. Her hospital course was uncomplicated except for electrolytes abnormality but she received supplements throughout her hospital stay. Once medically stable, patient was then released home. On the day of discharge, she was told to comply with discharge instructions and to follow up with her PCP in 1 week. She was advised to avoid any sexual activities for 2 weeks. And most importantly, she was further advised to come back or seek immediate care should her symptoms persist or get worse. The patient with her boyfriend at bedside expressed understanding and in agreement with the plans as discussed above. All questions and concerns were answered. HPI Initial Comments: This is a 18 yo young white female with past medical hx/o ADHD and Depression who comes with complaints of 3-4 day hx/o left upper quadrant pain associated with nausea, vomiting, loss of appetite, generalized weakness, and fever. She was negative for screening but was diagnosed with acute pyelonephritis on abdominal/pelvis ct scan. Diagnosis: Stroke: No - Discharge Data Discharge Date: 09/04/18 Discharge Disposition: Home, Self-Care 01 Condition: Good - Discharge Diagnosis/Problem(s) (1) Pyelonephritis SNOMED Code(s): 10424117 ICD Code: N12 - TUBULO-INTERSTITIAL NEPHRITIS, NOT SPCF ACUTE OR CHRONIC Status: Acute (2) Perineal abscess SNOMED Code(s): 56271977 ICD Code: L02.215 - CUTANEOUS ABSCESS OF PERINEUM Status: Acute (3) Hypokalemia SNOMED Code(s): 12559528 ICD Code: E87.6 - HYPOKALEMIA Status: Acute (4) Hypomagnesemia SNOMED Code(s): 326790178 ICD Code: E83.42 - HYPOMAGNESEMIA Status: Resolved (5) Sepsis SNOMED Code(s): 98447129 ICD Code: A41.9 - SEPSIS, UNSPECIFIED ORGANISM Status: Resolved Qualifiers: Sepsis type: Escherichia coli Qualified Code(s): A41.51 - Sepsis due to Escherichia coli [E. coli] - Patient Summary/Data Operative Procedure(s) Performed: None Complications: None Consults: Consultations 08/31/18 11:00 OT Evaluation and Treatment [CONS] Routine PT Evaluation and Treatment [CONS] Routine Labs Pending at D/C: None Recommended Follow-up Testing/Procedures: Repeat imaging if symptoms persist or get worse Planned Operative Procedure(s) after DC: None - Patient Instructions Diet: Usual Diet as Tolerated Activity: As Tolerated Driving: Do Not Drive Showering/Bathing: May Shower Notify Provider of: Fever, Increased Pain, Nausea and/or Vomiting Other/Special Instructions: - Please take all new medications as directed. - Resume home meds and continue routine activities as tolerated. - Recommend repeat CBC with BMP and Mg on follow up appointmen with PCP in 1 week. - Recommend repeat imaging study as needed if symptoms persist or get worse. - Avoid any sexual activities for 2 weeks! - Gynecology referral to be determined by your PCP on follow up appointment. - Call or follow up with your PCP for any questions or concerns after discharge. - Come back or seek immediate care should your symptoms persist or get worse - Discharge Plan *PRESCRIPTION DRUG MONITORING PROGRAM REVIEWED*: Not Applicable *COPY OF PRESCRIPTION DRUG MONITORING REPORT IN PATIENT ANTONIA: Not Applicable Prescriptions/Med Rec: Amoxicillin/Potassium Clav [Augmentin 875-125 Tablet] 1 each PO BID #20 tablet Saccharomyces Boulardii [Florastor] 250 mg PO BID #20 capsule Home Medications: Home Meds ALPRAZolam [Xanax] 0.5 mg PO ASDIRECTED 08/29/18 [History] Sertraline [Zoloft] 150 mg PO DAILY 08/29/18 [History] Amoxicillin/Potassium Clav [Augmentin 875-125 Tablet] 1 each PO BID #20 tablet 09/04/18 [Rx] Saccharomyces Boulardii [Florastor] 250 mg PO BID #20 capsule 09/04/18 [Rx] Patient Handouts: Pyelonephritis, Adult, [id number], What You Need to Know About Electronic Cigarettes, Urinary Tract Infection, Adult, [id number], Urosepsis Referrals: Tesha Otto PA-C [Ordering Only Provider] - - Discharge Summary/Plan Comment DC Time >30 min.: No Discharge Summary/Plan Comment: Discharge Home - General Info Date of Service: 09/04/18 Admission Dx/Problem (Free Text: Admission Diagnosis/Problem Admission Diagnosis/Problem Pyelonephritis Subjective Update: Less nausea after aggressive treatment of pyelo/sepsis; will continue clear liquids. Functional Status: Reports: Pain Controlled, Tolerating Diet, Ambulating, Urinating. Denies: New Symptoms - Review of Systems General: Denies: Fever, Weakness, Fatigue, Malaise, Chills HEENT: Reports: No Symptoms Pulmonary: Denies: Shortness of Breath Cardiovascular: Denies: Chest Pain, Dyspnea on Exertion, Lightheadedness Gastrointestinal: Denies: Abdominal Pain, Decreased Appetite, Nausea, Vomiting Genitourinary: Reports: No Symptoms Musculoskeletal: Reports: No Symptoms. Denies: Other Skin: Denies: Cyanosis, Mottled, Pallor, Bruising Neurological: Denies: Confusion, Headache, Syncope, Gait Disturbance Psychiatric: Denies: Confusion, Anxiety, Agitation Systems Review Comment: No overnight or acute issues. She rested well. No fever or chills and feels pretty good this morning. Her K is slightly low this AM. - Patient Data Vitals - Most Recent: Last Vital Signs Temp 36.8 C 09/04/18 09:11 Pulse 61 09/04/18 09:12 Resp 24 H 09/04/18 09:11 BP 119/75 09/04/18 09:12 Pulse Ox 99 09/04/18 09:12 Orthostatic Blood Pressure [ 90/56 Standing] Orthostatic Blood Pressure [ 111/73 Sitting] Orthostatic Blood Pressure [ 95/66 Supine] Weight - Most Recent: 65 kg I&O - Last 24 hours: Intake & Output 09/03/18 09/04/18 09/04/18 22:59 06:59 14:59 Intake Total 1850 800 Balance 1850 800 Lab Results - Last 24 hrs: Laboratory Results - last 24 hr 09/04/18 09/04/18 Range/Units 06:00 06:00 WBC 7.94 (3.98-10.04) K/mm3 RBC 3.99 (3.98-5.22) M/mm3 Hgb 10.8 L (11.2-15.7) gm/L Hct 32.4 L (34.1-44.9) % MCV 81.2 (79.4-94.8) fl MCH 27.1 (25.6-32.2) pg MCHC 33.3 (32.2-35.5) g/dl RDW Std Deviation 35.6 L (36.4-46.3) fL Plt Count 265 (182-369) K/mm3 MPV 9.0 L (9.4-12.3) fl Neut % (Auto) 53.7 (34.0-71.1) % Lymph % (Auto) 22.9 (19.3-51.7) % Colbert % (Auto) 20.5 H (4.7-12.5) % Eos % (Auto) 0.9 (0.7-5.8) Baso % (Auto) 0.1 (0.1-1.2) % Neut # (Auto) 4.26 (1.56-6.13) K/mm3 Lymph # (Auto) 1.82 (1.18-3.74) K/mm3 Colbert # (Auto) 1.63 H (0.24-0.36) K/mm3 Eos # (Auto) 0.07 (0.04-0.36) K/mm3 Baso # (Auto) 0.01 (0.01-0.08) K/mm3 Manual Slide Review Normal smear Sodium 138 (136-145) mEq/L Potassium 3.4 L (3.5-5.1) mEq/L Chloride 103 (98-107) mEq/L Carbon Dioxide 24 (21-32) mEq/L Anion Gap 14.4 (5-15) BUN 6 L (7-18) mg/dL Creatinine 0.6 (0.55-1.02) mg/dL Est Cr Clr Drug Dosing 153.47 mL/min Estimated GFR (MDRD) > 60 (>60) mL/min BUN/Creatinine Ratio 10.0 L (14-18) Glucose 104 (74-106) mg/dL Calcium 8.7 (8.5-10.1) mg/dL C-Reactive Protein 13.3 H* (<1.0) mg/dL BÁRBARA Results - Last 24 hrs: Microbiology 08/29/18 22:40 Aerobic Blood Culture - Preliminary Blood - Venous - Lab Draw NO GROWTH AFTER 5 DAYS Anaerobic Blood Culture - Preliminary NO GROWTH AFTER 5 DAYS 08/29/18 22:34 Aerobic Blood Culture - Preliminary Blood - Venous NO GROWTH AFTER 5 DAYS Anaerobic Blood Culture - Preliminary NO GROWTH AFTER 5 DAYS 08/29/18 15:48 Aerobic Blood Culture - Preliminary Blood - Venous - Lab Draw NO GROWTH AFTER 5 DAYS Anaerobic Blood Culture - Preliminary NO GROWTH AFTER 5 DAYS 08/29/18 15:38 Aerobic Blood Culture - Preliminary Blood - Venous NO GROWTH AFTER 5 DAYS Anaerobic Blood Culture - Preliminary NO GROWTH AFTER 5 DAYS Med Orders - Current: Current Medications Acetaminophen (Tylenol) 650 mg PO Q6H PRN PRN Reason: Pain/Fever Last Admin: 09/03/18 03:04 Dose: 650 mg Acetaminophen/Butalbital/Caffeine (Fioricet 325-50-40 Mg) 1 tab PO Q6H PRN PRN Reason: Headache Last Admin: 09/03/18 14:20 Dose: 1 tab Alprazolam (Xanax) 0.5 mg PO BID PRN PRN Reason: Anxiety Hydralazine HCl (Apresoline) 20 mg IVPUSH Q4H PRN PRN Reason: Hypertension Levofloxacin/Dextrose 750 mg/ (Premix) 150 mls @ 100 mls/hr IV Q24H [facility] Last Admin: 09/03/18 16:03 Dose: 100 mls/hr Promethazine HCl 12.5 mg/ (Sodium Chloride) 50.5 mls @ 100 mls/hr IV Q6H PRN PRN Reason: Nausea Piperacillin Sod/Tazobactam (Sod 4.5 gm/ Sodium Chloride) 100 mls @ 25 mls/hr IV Q8H [facility] Last Admin: 09/04/18 03:25 Dose: 25 mls/hr Ibuprofen (Motrin) 600 mg PO Q6H PRN PRN Reason: Headache Last Admin: 08/31/18 21:37 Dose: 600 mg Ketorolac Tromethamine (Toradol) 30 mg IVPUSH Q6H PRN PRN Reason: Pain (moderate 4-6) Last Admin: 09/03/18 14:21 Dose: 30 mg Magnesium Sulfate (Pharmacy To Dose - Magnesium Replacement) 1 dose .XX ASDIRECTED PRN PRN Reason: PHARMACY TO WATCH MAG LEVELS Metoprolol Tartrate (Lopressor) 5 mg IVPUSH Q4H PRN PRN Reason: Tachycardia Miscellaneous Information (Remove Patch) 1 ea TRDERM Q72H [facility] Last Admin: 09/03/18 21:12 Dose: Not Given Ondansetron HCl (Zofran) 4 mg IVPUSH Q8H PRN PRN Reason: Nausea/Vomiting Saccharomyces Boulardii (Florastor) 250 mg PO BID [facility] Last Admin: 09/04/18 09:16 Dose: 250 mg Sertraline HCl (Zoloft) 150 mg PO DAILY [facility] Last Admin: 09/04/18 09:16 Dose: 150 mg Sodium Chloride (Saline Flush) 10 ml FLUSH ONETIME PRN PRN Reason: IV FLUSH Last Admin: 09/02/18 11:58 Dose: 10 ml Discontinued Medications Ceftriaxone Sodium (Rocephin) 2 gm IVPUSH Q24H [facility] Last Admin: 08/29/18 18:03 Dose: Not Given Sodium Chloride (Normal Saline) 1,000 mls @ 999 mls/hr IV ONETIME ONE Stop: 08/29/18 15:09 Last Admin: 08/29/18 14:25 Dose: 999 mls/hr Lactated Ringer's (Ringers, Lactated) 1,000 mls @ 999 mls/hr IV .BOLUS ONE Stop: 08/29/18 16:17 Last Admin: 08/29/18 15:25 Dose: 999 mls/hr Potassium Chloride 10 meq/ (Premix) 100 mls @ 100 mls/hr IV ONETIME ONE Stop: 08/29/18 16:22 Last Admin: 08/29/18 15:35 Dose: 100 mls/hr Lactated Ringer's (Ringers, Lactated) 1,000 mls @ 999 mls/hr IV .BOLUS ONE Stop: 08/29/18 17:38 Last Admin: 08/29/18 16:55 Dose: 999 mls/hr Potassium Chloride 10 meq/ (Premix) 100 mls @ 100 mls/hr IV ONETIME ONE Stop: 08/29/18 17:38 Last Admin: 08/29/18 16:55 Dose: 100 mls/hr Levofloxacin/Dextrose 750 mg/ (Premix) 150 mls @ 100 mls/hr IV ONETIME ONE Stop: 08/29/18 18:12 Last Admin: 08/29/18 17:24 Dose: 100 mls/hr Dextrose/Sodium Chloride (Dextrose 5%-Normal Saline) 1,000 mls @ 999 mls/hr IV ASDIRECTED [facility] Last Admin: 08/29/18 17:20 Dose: 999 mls/hr Dextrose/Sodium Chloride (Dextrose 5%-Normal Saline) 1,000 mls @ 100 mls/hr IV ASDIRECTED [facility] Last Admin: 08/29/18 21:52 Dose: 100 mls/hr Promethazine HCl 12.5 mg/ (Sodium Chloride) 50.5 mls @ 100 mls/hr IV Q6H [facility] Last Admin: 08/31/18 11:16 Dose: Not Given Sodium Chloride (Normal Saline) 1,000 mls @ 150 mls/hr IV ASDIRECTED [facility] Last Admin: 08/31/18 11:24 Dose: 150 mls/hr Sodium Chloride (Normal Saline) 1,000 mls @ 500 mls/hr IV ONETIME ONE Stop: 08/30/18 00:17 Last Admin: 08/29/18 22:24 Dose: 500 mls/hr Magnesium Sulfate 4 gm/ Premix 50 mls @ 12.5 mls/hr IV ONETIME ONE Stop: 08/30/18 07:29 Last Admin: 08/30/18 03:33 Dose: 12.5 mls/hr Magnesium Sulfate 4 gm/ Premix 50 mls @ 12.5 mls/hr IV ONETIME ONE Stop: 08/30/18 21:59 Last Admin: 08/30/18 18:02 Dose: 12.5 mls/hr Magnesium Sulfate 2 gm/ Premix 50 mls @ 25 mls/hr IV ONETIME ONE Stop: 09/02/18 11:14 Last Admin: 09/02/18 10:11 Dose: 25 mls/hr Piperacillin Sod/Tazobactam (Sod 4.5 gm/ Sodium Chloride) 100 mls @ 200 mls/hr IV ONETIME ONE Stop: 09/02/18 11:29 Last Admin: 09/02/18 12:49 Dose: 200 mls/hr Sodium Chloride (Normal Saline) 500 mls @ 999 mls/hr IV .BOLUS ONE Stop: 09/02/18 11:26 Last Admin: 09/02/18 11:15 Dose: 999 mls/hr Influenza Virus Vaccine (Pharmacy To Dose - Influenza Vaccine) 1 each IM ONETIME ONE Stop: 08/29/18 23:08 Influenza Virus Vaccine (Fluzone Quad [id number] Syringe) 60 mcg IM .ONCE ONE Stop: 08/30/18 10:01 Iopamidol (Isovue-370 (76%)) 100 ml IV ONETIME ONE Stop: 09/02/18 11:23 Last Admin: 09/02/18 11:56 Dose: 100 ml Ketorolac Tromethamine (Toradol) 15 mg IVPUSH ONETIME ONE Stop: 08/29/18 14:35 Last Admin: 08/29/18 14:54 Dose: 15 mg Ketorolac Tromethamine (Toradol) 30 mg IVPUSH ONETIME ONE Stop: 08/29/18 22:16 Last Admin: 08/29/18 22:25 Dose: 30 mg Ketorolac Tromethamine (Toradol) 15 mg IVPUSH Q8H [facility] Stop: 09/02/18 00:01 Last Admin: 09/01/18 23:06 Dose: 15 mg Magnesium Oxide (Magnesium Oxide) 400 mg PO ONETIME ONE Stop: 09/01/18 18:31 Last Admin: 09/01/18 19:06 Dose: 400 mg Ondansetron HCl (Zofran Odt) 4 mg PO ONETIME ONE Stop: 08/29/18 14:04 Last Admin: 08/29/18 14:35 Dose: Not Given Ondansetron HCl (Zofran) 4 mg IVPUSH ONETIME ONE Stop: 08/29/18 14:10 Last Admin: 08/29/18 14:20 Dose: 4 mg Phenazopyridine HCl (Urinary Pain Relief) 95 mg PO TIDPC [facility] Last Admin: 09/01/18 08:08 Dose: 95 mg Potassium Chloride (Klor-Con M20) 40 meq PO ONETIME ONE Stop: 08/29/18 15:18 Last Admin: 08/29/18 16:21 Dose: Not Given Potassium Chloride (Pharmacy To Dose - Potassium Replacement) 1 dose .XX ASDIRECTED PRN PRN Reason: PHARMACY TO WATCH K LEVELS Potassium Chloride (Klor-Con M20) 40 meq PO Q4H [facility] Stop: 09/01/18 22:31 Last Admin: 09/01/18 23:05 Dose: 40 meq Potassium Chloride (Klor-Con M20) 40 meq PO Q4H [facility] Stop: 09/02/18 13:16 Last Admin: 09/02/18 12:24 Dose: 40 meq Potassium Chloride (Klor-Con M20) 60 meq PO DAILY PRN PRN Reason: Other Saccharomyces Boulardii (Florastor) 250 mg PO ONETIME ONE Stop: 09/02/18 10:31 Last Admin: 09/02/18 10:34 Dose: 250 mg Scopolamine (Transderm-Scop) 1.5 mg TRDERM ONETIME ONE Stop: 08/29/18 22:52 Last Admin: 08/29/18 23:34 Dose: 1.5 mg - Exam General: Reports: Alert, Oriented, Cooperative, No Acute Distress HEENT: Reports: Pupils Equal, Pupils Reactive, EOMI, Mucous Membr. Moist/[place] Neck: Reports: Supple Lungs: Reports: Clear to Auscultation, Normal Respiratory Effort Cardiovascular: Reports: Regular Rate, Regular Rhythm GI/Abdominal Exam: Normal Bowel Sounds, Soft, Non-Tender, No Organomegaly, No Distention, No Abnormal Bruit (Female) Exam: Deferred Rectal (Female) Exam: Deferred Back Exam: Reports: Normal Inspection, Full Range of Motion, CVA Tenderness (L) (very minimal) Extremities: Normal Inspection, Normal Range of Motion, Non-Tender, No Pedal Edema, Normal Capillary Refill Skin: Reports: Warm, Dry, Intact Neurological: Reports: No New Focal Deficit Psy/Mental Status: Reports: Alert, Normal Affect, Normal Mood
== END 2018-09-04 10:55 | disposition home or self-care (01) | DRG 872 ==
LOC: JD.ED 13:47 → JD.MS 18:28 → OBSVTOIN 22:17 → JD.MS 08-30 04:34
PROVIDERS: ADMIT Internal Medicine Cardiovascular Disease; ATTEND Internal Medicine Cardiovascular Disease
DX: A41.51 Sepsis due to Escherichia coli [E. coli] (principal); N12 Tubulo-interstitial nephritis, not specified as acute or chronic; L02.215 Cutaneous abscess of perineum; F90.9 Attention-deficit hyperactivity disorder, unspecified type; F32.9 Major depressive disorder, single episode, unspecified; E86.0 Dehydration; F12.10 Cannabis abuse, uncomplicated; E87.6 Hypokalemia; E83.42 Hypomagnesemia; Z79.899 Other long term (current) drug therapy
CPT/HCPCS: 36415; 71046; 71046-26; 74018; 74018-26; 74177; 74177-26; 80048; 80053; 80306; 81001; 82150; 83605; 83690; 83735; 84702; 85007; 85025; 85027; 86140; 86308; 87040; 87086; 87088; 87186; 87804; 90686; 96361; 96365; 96366; 96367; 96375; 99284; 99285-25; A9270-GY; G0008; J1885; J1956; J2405; J2543; J2550; J3475; J3480; J7030; J7040; J7042; J7050; J7120; Q9967